=== PATIENT | male | born 1950 | race Caucasian/White ===

== ENCOUNTER 2019-01-13 20:08 | Emergency (ER) | payer OTHER ==
[2019-01-13 20:23] VITALS: TEMP 97.9
--- NOTE | 2019-01-13 20:57 | ED ---
General Adult HPI - General Chief complaint: Weakness Stated complaint: Fall Time Seen by Provider: 01/13/19 20:45 Source: patient, EMS Mode of arrival: EMS Limitations: no limitations - History of Present Illness Initial comments: Dictation was produced using [employer] dictation software. please excuse any grammatical, word or spelling errors. Chief Complaint: 68-year-old male presents via EMS from [facility] for weakness. History of Present Illness: 68-year-old male. He reports that he was sitting in a chair. The chair broke and he fell onto his right side. Patient has no complaints at this time. Patient states that he was still in the chair upon falling down. Patient states he ambulates normally with a walker. Patient needed assistance getting up due to chronic debility. The ROS documented in this emergency department record has been reviewed and confirmed by me. Those systems with pertinent positive or negative responses have been documented in the HPI. All other systems are other negative and/or noncontributory. PHYSICAL EXAM: General Impression: Alert and oriented x3, not in acute distress HEENT: Normocephalic atraumatic, extra-ocular movements intact, pupils equal and reactive to light bilaterally, mucous membranes moist. Cardiovascular: Heart regular rate and rhythm, S1&S2 audible, no murmurs, rubs or gallops Chest: Lungs clear to auscultation bilaterally, no rhonchi, no wheeze, no rales Abdomen: Bowel sounds present, abdomen soft, non-tender, non-distended, no organomegaly Musculoskeletal: Pulses present and equal in all extremities, no peripheral edema, all extremities ranged with no issues. Motor: no focal deficits noted Neurological: CN II-XII grossly intact, no focal motor or sensory deficits noted Skin: Superficial skin abrasion over the right flank Psych: Normal affect and mood ED course: 68-year-old male presents after fall from sitting on a chair that broke. As upon arrival shows heart rate of 111, respiratory rate 34, rest of vital signs within acceptable limits. Chest x-ray, pelvis x-ray and bilateral knee x-rays were obtained showing no acute processes. Patient evaluated and found to be stable. He has no complaints at this time. Patient denies any pain at this time. Patient requests to go home. At this point patient's well- appearing without any significant injuries. Patient clear for discharge back to [facility]. Repeat vitals were obtained found to be improved. Advised to follow-up with primary care physician upon discharge. - Related Data Home Medications Medication Instructions Recorded Confirmed Aspirin EC [Ecotrin Low Dose] 81 mg PO DAILY 01/13/19 01/13/19 Citalopram Hydrobromide [CeleXA] 40 mg PO DAILY 01/13/19 01/13/19 Finasteride [Proscar] 5 mg PO DAILY 01/13/19 01/13/19 Furosemide [Lasix] 40 mg PO BID@0700,1200 01/13/19 01/13/19 Metoprolol Succinate (ER) [Toprol 25 mg PO DAILY 01/13/19 01/13/19 Xl] Omeprazole 40 mg PO DAILY 01/13/19 01/13/19 Tamsulosin HCl [Flomax] 0.4 mg PO DAILY 01/13/19 01/13/19 Allergies Allergy/AdvReac Type Severity Reaction Status Date / Time No Known Allergies Allergy Verified 01/13/19 21:08 Review of Systems ROS Statement: Those systems with pertinent positive or pertinent negative responses have been documented in the HPI. ROS Other: All systems not noted in ROS Statement are negative. Past Medical History Past Medical History: GERD/Reflux, Hypertension, Prostate Disorder History of Any Multi-Drug Resistant Organisms: None Reported Past Surgical History: Tonsillectomy Past Psychological History: Depression Smoking Status: Never smoker Past Alcohol Use History: Rare Past Drug Use History: None Reported General Exam Limitations: no limitations Course Vital Signs 01/13/19 20:15 Temperature 97.9 F Pulse Rate 111 H Respiratory 34 H Rate Blood Pressure 124/90 O2 Sat by Pulse 95 Oximetry Disposition Clinical Impression: Fall Disposition: HOME SELF-CARE Condition: Good Instructions (If sedation given, give patient instructions): Fall Prevention (ED) Is patient prescribed a controlled substance at d/c from ED?: No Referrals: [facility],Clinic [Primary Care Provider] - 1-2 days Time of Disposition: 22:32
--- NOTE | 2019-01-13 22:12 | XR ---
EXAMINATION TYPE: XR chest 2V DATE OF EXAM: 01/13/2019 COMPARISON: Chest x-ray October 14, 2014 HISTORY: Fall injury with chest pain. TECHNIQUE: Frontal and lateral views of the chest are obtained. FINDINGS: Suboptimal study due to patient's large body habitus. There is poor inspiration chronic par enchymal change without suspicious focal air space opacity, pleural effusion, or pneumothorax seen. The cardiac silhouette size is enlarged. Bridging osteophytes in the thoracic spine are present. IMPRESSION: Diminished inspiration with cardiomegaly and chronic parenchymal changes but no convinci ng acute pulmonary process.
--- NOTE | 2019-01-13 22:13 | XR ---
EXAMINATION TYPE: XR pelvis AP view DATE OF EXAM: 01/13/2019 CLINICAL HISTORY: Follow injury today with pain. TECHNIQUE: A single AP view of the pelvis is obtained. COMPARISON: None. FINDINGS: There is no acute fracture/dislocation evident in the pelvis. Moderate axial joint space l oss and acetabular spurring of both hips is present. Sacroiliac joints are maintained. The overlying soft tissue appears unremarkable. IMPRESSION: There is no acute fracture or dislocation in the pelvis.
--- NOTE | 2019-01-13 22:16 | XR ---
EXAMINATION TYPE: XR knee limited bilateral DATE OF EXAM: 01/13/2019 CLINICAL HISTORY: Fall injury today with bilateral knee pain. TECHNIQUE: Three views of the bilateral knees are obtained. COMPARISON: Right knee x-ray October 14, 2014.. FINDINGS: There is no acute fracture/dislocation evident in either knee. There is moderate to severe narrowing and spurring patellofemoral and medial tibiofemoral compartments bilaterally worse in the right patellofemoral compartment. Posterior vascular calcification is present bilaterally worse in th e right knee. IMPRESSION: There is no acute fracture or dislocation in either knee. Moderate to advanced degenerat ayan changes bilaterally worse in right knee versus left knee noted.
[2019-01-13 22:50] VITALS: BP 141/90; PULSE 102; RESP 26
== END 2019-01-14 00:26 | disposition home or self-care (01) ==
LOC: EC 20:08
DX: S30.811A Abrasion of abdominal wall, initial encounter (principal); R53.1 Weakness; K21.9 Gastro-esophageal reflux disease without esophagitis; I10 Essential (primary) hypertension; N42.9 Disorder of prostate, unspecified; F32.9 Major depressive disorder, single episode, unspecified; Z79.82 Long term (current) use of aspirin; Z79.899 Other long term (current) drug therapy; W07.XXXA Fall from chair, initial encounter
CPT/HCPCS: 71046; 72170; 99285

== ENCOUNTER 2019-01-14 11:36 | Emergency (ER) | payer OTHER ==
--- NOTE | 2019-01-14 12:09 | ED ---
Fall HPI - General Stated Complaint: Fall, R hip pain Time Seen by Provider: 01/14/19 11:57 Source: patient, EMS Mode of arrival: EMS Limitations: no limitations - History of Present Illness Initial Comments: 68-year-old male presents emergency Department chief complaint of slip and fall. Patient states his walker slid out from him and states that he slipped to the ground. He states is a very gentle fall. Patient states that he has some pelvic pain. Patient denies any head injury no loss conscious. Patient has abrasion on his right side though he states this was from a fall earlier. Patient states that he does have a scrape on his right foot though it is not painful. Patient denies any upper extremity pain. - Related Data Home Medications Medication Instructions Recorded Confirmed Aspirin EC [Ecotrin Low Dose] 81 mg PO DAILY 01/13/19 01/14/19 Citalopram Hydrobromide [CeleXA] 40 mg PO DAILY 01/13/19 01/14/19 Finasteride [Proscar] 5 mg PO DAILY 01/13/19 01/14/19 Furosemide [Lasix] 40 mg PO BID@0700,1200 01/13/19 01/14/19 Metoprolol Succinate (ER) [Toprol 25 mg PO DAILY 01/13/19 01/14/19 Xl] Omeprazole 40 mg PO DAILY 01/13/19 01/14/19 Tamsulosin HCl [Flomax] 0.4 mg PO DAILY 01/13/19 01/14/19 Allergies Allergy/AdvReac Type Severity Reaction Status Date / Time No Known Allergies Allergy Verified 01/14/19 11:59 Review of Systems ROS Statement: Those systems with pertinent positive or pertinent negative responses have been documented in the HPI. ROS Other: All systems not noted in ROS Statement are negative. Past Medical History Past Medical History: GERD/Reflux, Hypertension, Prostate Disorder History of Any Multi-Drug Resistant Organisms: None Reported Past Surgical History: Tonsillectomy Past Psychological History: Depression Smoking Status: Never smoker Past Alcohol Use History: Rare Past Drug Use History: None Reported General Exam Limitations: no limitations General appearance: alert, in no apparent distress Head exam: Present: atraumatic, normocephalic, normal inspection Eye exam: Present: normal appearance, PERRL, EOMI. Absent: scleral icterus, conjunctival injection, periorbital swelling ENT exam: Present: normal exam, normal oropharynx, mucous membranes moist, TM's normal bilaterally Neck exam: Present: normal inspection, full ROM. Absent: tenderness, meningismus, lymphadenopathy Respiratory exam: Present: normal lung sounds bilaterally. Absent: respiratory distress, wheezes, rales, rhonchi, stridor Cardiovascular Exam: Present: regular rate, normal rhythm, normal heart sounds. Absent: systolic murmur, diastolic murmur, rubs, gallop, clicks GI/Abdominal exam: Present: soft, normal bowel sounds. Absent: distended, tenderness, guarding, rebound, rigid Extremities exam: Present: normal inspection, full ROM, normal capillary refill, other (Mild tenderness along the lower pelvic region). Absent: tenderness, pedal edema, joint swelling, calf tenderness Back exam: Present: full ROM. Absent: tenderness, paraspinal tenderness, vertebral tenderness Skin exam: Present: warm, dry, intact, normal color, abrasion (Abrasion noted the right side with no localized tenderness, right foot abrasion). Absent: rash Course Vital Signs 01/14/19 11:54 Temperature 99.4 F Pulse Rate 102 H Respiratory 20 Rate Blood Pressure 138/94 O2 Sat by Pulse 94 L Oximetry Medical Decision Making - Medical Decision Making 68-year-old male presented for a slip and fall. This was a minor fall. X-rays were repeated which shows no fracture. Patient is able to stand, ambulate. Patient has a contusion. He also has noted abrasion. Patient will be discharg ed return parameters were discussed. Disposition Clinical Impression: Fall, Foot abrasion, Contusion, hip Disposition: HOME SELF-CARE Condition: Stable Instructions (If sedation given, give patient instructions): Abrasion (ED), Fall Prevention for Older Adults (ED) Additional Instructions: Please return to the Emergency Department if symptoms worsen or any other concerns. Is patient prescribed a controlled substance at d/c from ED?: No Referrals: [facility],Clinic [Primary Care Provider] - 1-2 days Time of Disposition: 12:49
--- NOTE | 2019-01-14 12:31 | XR ---
AP pelvis HISTORY: Trauma and pain frontal view of the pelvis submitted on 2 images and correlated prior exam 01/13/2019 Exam is somewhat limited technically. Hypertrophic changes are noted within the bilateral hips. Joint space loss is present. No gross fract ure or dislocation. IMPRESSION: Stable findings. Consider alternate imaging for increased sensitivity as indicated.
[2019-01-14 13:43] VITALS: BP 130/93; PULSE 101; RESP 18; TEMP 98.2
== END 2019-01-14 13:40 | disposition home or self-care (01) ==
LOC: EEVIPCON 11:36 → EC 11:36
DX: S90.811A Abrasion, right foot, initial encounter (principal); S70.01XA Contusion of right hip, initial encounter; R10.2 Pelvic and perineal pain; K21.9 Gastro-esophageal reflux disease without esophagitis; I10 Essential (primary) hypertension; N42.9 Disorder of prostate, unspecified; F32.9 Major depressive disorder, single episode, unspecified; Z79.82 Long term (current) use of aspirin; Z79.899 Other long term (current) drug therapy; W01.0XXA Fall on same level from slipping, tripping and stumbling without subsequent striking against object, initial encounter; Y93.01 Activity, walking, marching and hiking
CPT/HCPCS: 72170; 99283

== ENCOUNTER 2019-01-14 17:19 | Emergency (ER) | payer OTHER ==
[2019-01-14] MEDS ORDERED: DEXAMETHASONE SOD PHOSPHATE 10 MG/ML 1 ML VIAL IV STA (19:00)
--- NOTE | 2019-01-14 19:16 | ED ---
General Adult HPI - General Chief complaint: Weakness Stated complaint: Weakness Time Seen by Provider: 01/14/19 17:45 Source: patient, EMS, RN notes reviewed, old records reviewed Mode of arrival: EMS Limitations: no limitations - History of Present Illness Initial comments: 68-year-old male patient with past medical history of BPH, hypertension, presents to ER with complaint of diarrhea, weakness in lower extremities, loss of bowel control. Patient reports that he had a fall for which she was seen at this emergency department around 12 PM. Patient reports at that time his walker slid out from from underneath him and he fell on his gluteal region. Patient reports that this was a mild not severe fall. Patient denies any trauma to head or neck, denies any other injury. Patient reports after discharge he felt weak in his lower extremities, was not comfortable with ambulation. Patient uses a walker to ambulate. Patient also reports a loss of bowel control. Patient has had diarrhea throughout the day. Patient requests further evaluation. Patient denies any paresthesias, saddle anesthesia, patient denies pain in lumbar spine. Systemic: Pt denies fatigue, myalgia, fever/chills, rash. Pt denies weakness, night sweats, weight loss. Neuro: Pt denies headache, visual disturbances, syncope or pre-syncope. HEENT: Pt denies ocular discharge or irritation, otalgia, rhinorrhea, pharyngitis or notable lymphadenopathy. Cardiopulmonary: Pt denies chest pain, SOB, heart palpitations, dyspnea on exertion. Abdominal/GI: Pt denies abdominal pain, n/v/d. : Pt denies dysuria, burning w/ urination, frequency/urgency. Denies new onset urinary or bowel incontinence. MSK: Pt denies myalgia. Neuro: Pt denies new onset paresthesias. - Related Data Home Medications Medication Instructions Recorded Confirmed Aspirin EC [Ecotrin Low Dose] 81 mg PO DAILY 01/13/19 01/14/19 Citalopram Hydrobromide [CeleXA] 40 mg PO DAILY 01/13/19 01/14/19 Finasteride [Proscar] 5 mg PO DAILY 01/13/19 01/14/19 Furosemide [Lasix] 40 mg PO BID@0700,1200 01/13/19 01/14/19 Metoprolol Succinate (ER) [Toprol 25 mg PO DAILY 01/13/19 01/14/19 Xl] Omeprazole 40 mg PO DAILY 01/13/19 01/14/19 Tamsulosin HCl [Flomax] 0.4 mg PO DAILY 01/13/19 01/14/19 Allergies Allergy/AdvReac Type Severity Reaction Status Date / Time No Known Allergies Allergy Verified 01/14/19 18:05 Review of Systems ROS Statement: Those systems with pertinent positive or pertinent negative responses have been documented in the HPI. ROS Other: All systems not noted in ROS Statement are negative. Past Medical History Past Medical History: GERD/Reflux, Hypertension, Prostate Disorder History of Any Multi-Drug Resistant Organisms: None Reported Past Surgical History: Tonsillectomy Past Psychological History: Depression Smoking Status: Never smoker Past Alcohol Use History: Rare Past Drug Use History: None Reported General Exam - General Exam Comments Initial Comments: Constitutional: NAD, AOX3, Pt has pleasant affect. HEENT: NC/AT, trachea midline, neck supple, no lymphadenopathy. Posterior pharynx non erythematous, without exudates. External ears appear normal, without discharge. Mucous membranes moist. Eyes PERRLA, EOM intact. There is no scleral icterus. No pallor noted. Cardiopulmonary: RRR, no murmurs, rubs or gallops, no JVD noted. Lungs CTAB in anterior and posterior hendricks. No peripheral edema. Abdominal exam: Abdomen soft and non-distended. Abdomen non-tender to palpation in all 4 quadrants. Bowel sounds active in LLQ. No hepatosplenomegaly. No ecchymosis Neuro: CN II-XII grossly intact. No nuchal rigidity. MSK: Full active ROM in upper and lower extremities. 5 out of 5 strength in right quadricep/psoas muscles. 3 out of 5 strength in left psoas, 4/5 strength in left quadriceps muscle. Absent patellar and Achilles reflex. Rectal tone mildly diminished. Sensation intact in upper and lower extremities, rectum. Limitations: no limitations Course Vital Signs 01/14/19 01/14/19 01/14/19 17:28 18:00 18:30 Temperature 97.1 F L Pulse Rate 97 Respiratory 18 Rate Blood Pressure 144/78 144/78 137/88 O2 Sat by Pulse 92 L 93 L Oximetry Medical Decision Making - Medical Decision Making 68-year-old male patient with past medical history of BPH, hypertension, presents to ER with complaint of diarrhea, weakness in lower extremities, loss of bowel control. Patient reports that he had a fall for which she was seen at this emergency department around 12 PM. Patient reports at that time his walker slid out from from underneath him and he fell on his gluteal region. Patient reports that this was a mild not severe fall. Patient denies any trauma to head or neck, denies any other injury. Patient reports after discharge he felt weak in his lower extremities, was not comfortable with ambulation. Patient uses a walker to ambulate. Patient also reports a loss of bowel control. Patient has had diarrhea throughout the day. Patient requests further evaluation. Patient denies any paresthesias, saddle anesthesia, patient denies pain in lumbar spine. Vital signs stable, afebrile. Physical exam displayed: Full active ROM in upper and lower extremities. 5 out of 5 strength in right quadricep/psoas muscles. 3 out of 5 strength in left psoas, 4/5 strength in left quadriceps muscle. Absent patellar and Achilles reflex. Rectal tone mildly diminished. Sensation intact in upper and lower extremities, rectum. Left MSK she reveal leukocytosis of 20. BMP non-impressive. UA non-impressive. Bladder scan displayed 200mL retention, pt not able to spontaneously void. CT thoracic and lumbar spine displayed very severe lumbar spinal stenosis at L3-L4. MRI not currently available. Patient administered 10 mg Decadron. Patient to be transferred to [facility] for further evaluation. Case discussed with Dr. Olivo. Accepting Physician Dr. Monroe. - Lab Data Result diagrams: 01/14/19 19:12 01/14/19 19:12 Lab Results 01/14/19 01/14/19 01/14/19 Range/Units 19:12 19:12 20:04 WBC 20.9 H (3.8-10.6) k/uL RBC 4.30 (4.30-5.90) m/uL Hgb 13.1 (13.0-17.5) gm/dL Hct 40.0 (39.0-53.0) % MCV 93.1 (80.0-100.0) fL MCH 30.4 (25.0-35.0) pg MCHC 32.6 (31.0-37.0) g/dL RDW 13.7 (11.5-15.5) % Plt Count 332 (150-450) k/uL Neutrophils % 84 % Lymphocytes % 6 % Monocytes % 7 % Eosinophils % 1 % Basophils % 0 % Neutrophils # 17.7 H (1.3-7.7) k/uL Lymphocytes # 1.2 (1.0-4.8) k/uL Monocytes # 1.5 H (0-1.0) k/uL Eosinophils # 0.3 (0-0.7) k/uL Basophils # 0.1 (0-0.2) k/uL Sodium 140 (137-145) mmol/L Potassium 4.4 (3.5-5.1) mmol/L Chloride 106 (98-107) mmol/L Carbon Dioxide 26 (22-30) mmol/L Anion Gap 8 mmol/L BUN 29 H (9-20) mg/dL Creatinine 1.18 (0.66-1.25) mg/dL Est GFR (CKD-EPI)AfAm 72 (>60 ml/min/1.73 sqM) Est GFR (CKD-EPI)NonAf 63 (>60 ml/min/1.73 sqM) Glucose 139 H (74-99) mg/dL Calcium 9.6 (8.4-10.2) mg/dL Urine Color Urine Appearance (Clear) Urine pH (5.0-8.0) Ur Specific [place] (1.001-1.035) Urine Protein (Negative) Urine Glucose (UA) (Negative) Urine Ketones (Negative) Urine Blood (Negative) Urine Nitrite (Negative) Urine Bilirubin (Negative) Urine Urobilinogen (<2.0) mg/dL Ur Leukocyte Esterase (Negative) Urine RBC (0-5) /hpf Urine WBC (0-5) /hpf Amorphous Sediment (None) /hpf Hyaline Casts (0-2) /lpf Urine Mucus (None) /hpf Influenza Type A RNA Not Detected (Not Detectd) Influenza Type B (PCR) Not Detected (Not Detectd) 01/14/19 Range/Units 20:54 WBC (3.8-10.6) k/uL RBC (4.30-5.90) m/uL Hgb (13.0-17.5) gm/dL Hct (39.0-53.0) % MCV (80.0-100.0) fL MCH (25.0-35.0) pg MCHC (31.0-37.0) g/dL RDW (11.5-15.5) % Plt Count (150-450) k/uL Neutrophils % % Lymphocytes % % Monocytes % % Eosinophils % % Basophils % % Neutrophils # (1.3-7.7) k/uL Lymphocytes # (1.0-4.8) k/uL Monocytes # (0-1.0) k/uL Eosinophils # (0-0.7) k/uL Basophils # (0-0.2) k/uL Sodium (137-145) mmol/L Potassium (3.5-5.1) mmol/L Chloride (98-107) mmol/L Carbon Dioxide (22-30) mmol/L Anion Gap mmol/L BUN (9-20) mg/dL Creatinine (0.66-1.25) mg/dL Est GFR (CKD-EPI)AfAm (>60 ml/min/1.73 sqM) Est GFR (CKD-EPI)NonAf (>60 ml/min/1.73 sqM) Glucose (74-99) mg/dL Calcium (8.4-10.2) mg/dL Urine Color Yellow Urine Appearance Cloudy (Clear) Urine pH 5.5 (5.0-8.0) Ur Specific [place] 1.027 (1.001-1.035) Urine Protein 1+ H (Negative) Urine Glucose (UA) Negative (Negative) Urine Ketones Negative (Negative) Urine Blood Moderate H (Negative) Urine Nitrite Negative (Negative) Urine Bilirubin Negative (Negative) Urine Urobilinogen 2.0 (<2.0) mg/dL Ur Leukocyte Esterase Negative (Negative) Urine RBC 2 (0-5) /hpf Urine WBC 4 (0-5) /hpf Amorphous Sediment Occasional H (None) /hpf Hyaline Casts 2 (0-2) /lpf Urine Mucus Few H (None) /hpf Influenza Type A RNA (Not Detectd) Influenza Type B (PCR) (Not Detectd) Disposition Clinical Impression: Fall, Lumbar spinal stenosis Disposition: OTHER INSTITUTION NOT DEFINED Condition: Serious Is patient prescribed a controlled substance at d/c from ED?: No Referrals: [facility],Clinic [Primary Care Provider] - 1-2 days - Out of Hospital Transfer - Req. Specs Out of Hospital Transfer - Requested Specifics: Other Emergency Center ([facility])
[2019-01-14 19:22] LABS: Basophils # (A) 0.1 k/uL (0-0.2); Basophils % (A) 0 %; Eosinophils # (A) 0.3 k/uL (0-0.7); Eosinophils % (A) 1 %; HGB 13.1 gm/dL (13.0-17.5); Lymphocytes # (A) 1.2 k/uL (1.0-4.8); Lymphocytes % (A) 6 %; MCH 30.4 pg (25.0-35.0); MCHC 32.6 g/dL (31.0-37.0); MCV 93.1 fL (80.0-100.0); Mean Platelet Volume 6.8; Monocytes # (A) 1.5 k/uL (0-1.0); Monocytes % (A) 7 %; Neutrophils # (A) 17.7 k/uL (1.3-7.7); Neutrophils % (A) 84 %; Platelet Count 332 k/uL (150-450); RDW 13.7 % (11.5-15.5); WBC 20.9 k/uL (3.8-10.6)
[2019-01-14 19:31] LABS: Calcium 9.6 mg/dL (8.4-10.2); Potassium 4.4 mmol/L (3.5-5.1)
--- NOTE | 2019-01-14 20:16 | CT ---
EXAMINATION TYPE: CT thor lumbar spine wo con DATE OF EXAM: 01/14/2019 COMPARISON: None HISTORY: Weakness. CT DLP: 3882.4 mGycm Automated exposure control for dose reduction was used. FINDINGS: Thoracic and lumbar vertebra have fairly normal spacing and alignment for the patient's age. There is mild hypertrophic anterior spurring in the thoracic spine and lumbar spine. The posterior elements a re intact. There is no compression fracture. There is no thoracic paraspinal mass. There is coarse re ticular density in the posterior lung hendricks and more on the right side consistent with pulmonary fib rosis. There is no pleural effusion. There is no thoracic paraspinal mass. There is a mild spinal amie nosis at L2-3. There is severe bony spinal stenosis at L3-4. There is mild spinal stenosis at L4-5. IMPRESSION: VERY SEVERE LUMBAR SPINAL STENOSIS AT L3-4. NO FRACTURE. THERE IS LESS SEVERE SPINAL STENOSIS AT OTHE R LEVELS ABOVE. PULMONARY FIBROTIC CHANGES AT THE LUNG BASES.
[2019-01-14 21:13] LABS: Amorphous Sediment,Urine Occasional /hpf; Appearance,Urine Cloudy (Clear); Bilirubin,Urine Negative (Negative); Blood,Urine Moderate (Negative); Color,Urine Yellow; Glucose,Urine (UA) Negative (Negative); Hyaline Casts,Urine 2 /lpf (0-2); Ketones,Urine Negative (Negative); Leukocyte Esterase,Urine Negative (Negative); Mucus,Urine Few /hpf; Nitrite,Urine Negative (Negative); PH, Urine 5.5 (5.0-8.0); Protein,Urine 1+ (Negative); RBC,Urine 2 /hpf (0-5); Specific Gravity,Urine 1.027 (1.001-1.035)
[2019-01-14 22:03] VITALS: BP 133/85; PULSE 82; RESP 22; TEMP 98.8
== END 2019-01-14 22:03 | disposition other institution (70) ==
LOC: EC 17:19
DX: M48.061 Spinal stenosis, lumbar region without neurogenic claudication (principal); R53.1 Weakness; R19.7 Diarrhea, unspecified; R33.9 Retention of urine, unspecified; D72.829 Elevated white blood cell count, unspecified; I10 Essential (primary) hypertension; N40.0 Benign prostatic hyperplasia without lower urinary tract symptoms; K21.9 Gastro-esophageal reflux disease without esophagitis; F32.9 Major depressive disorder, single episode, unspecified; Z79.82 Long term (current) use of aspirin; Z79.899 Other long term (current) drug therapy; W18.39XD Other fall on same level, subsequent encounter; Y92.098 Other place in other non-institutional residence as the place of occurrence of the external cause
CPT/HCPCS: 36415; 51701; 72128; 72131; 80048; 81001; 85025; 87502; 96374; 99285

== ENCOUNTER 2019-02-12 14:57 | Emergency (ER) | payer OTHER ==
[2019-02-12 15:16] VITALS: TEMP 98.2
--- NOTE | 2019-02-12 16:12 | ED ---
Wound/Laceration HPI - General Chief Complaint: Wound/Laceration Stated Complaint: infection Time Seen by Provider: 02/12/19 15:23 Source: patient, EMS, RN notes reviewed, old records reviewed Mode of arrival: EMS Limitations: physical limitation - History of Present Illness Initial Comments: This is a 68-year-old male presenting for evaluation of chronic right-sided will only gallop following hitting it on a desk. Slow healing wound. No drainage. The wound did bleed, but is is not healing appropriately. A she does have significant medical history, and denies underlying diagnosis of diabetes no fevers. Patient does admit to some mild tenderness in the area. Patient was sent ER for evaluation of wound. -: week(s) Extremity Location: Right: Knee Place: home Patient Tetanus UTD: No Context: fall Associated Symptoms: none - Related Data Home Medications Medication Instructions Recorded Confirmed Aspirin EC [Ecotrin Low Dose] 81 mg PO DAILY 01/13/19 02/12/19 Citalopram Hydrobromide [CeleXA] 40 mg PO DAILY 01/13/19 02/12/19 Finasteride [Proscar] 5 mg PO DAILY 01/13/19 02/12/19 Furosemide [Lasix] 40 mg PO BID@0700,1200 01/13/19 02/12/19 Metoprolol Succinate (ER) [Toprol 25 mg PO DAILY 01/13/19 02/12/19 Xl] Omeprazole 40 mg PO DAILY 01/13/19 02/12/19 Tamsulosin HCl [Flomax] 0.4 mg PO DAILY 01/13/19 02/12/19 Previous Rx's Medication Instructions Recorded Cephalexin [Keflex] 500 mg PO Q6HR #40 cap 02/12/19 Mupirocin Calcium 2% Cream 1 applic TOPICAL TID #15 gm 02/12/19 [Bactroban 2% Cream] Allergies Allergy/AdvReac Type Severity Reaction Status Date / Time No Known Allergies Allergy Verified 02/12/19 16:00 Review of Systems ROS Statement: Those systems with pertinent positive or pertinent negative responses have been documented in the HPI. ROS Other: All systems not noted in ROS Statement are negative. Past Medical History Past Medical History: COPD, GERD/Reflux, Hypertension, Prostate Disorder History of Any Multi-Drug Resistant Organisms: None Reported Past Surgical History: Tonsillectomy Past Psychological History: Anxiety, Depression Smoking Status: Never smoker Past Alcohol Use History: Rare Past Drug Use History: None Reported General Exam Limitations: physical limitation General appearance: alert, in no apparent distress Head exam: Present: atraumatic, normocephalic, normal inspection Eye exam: Present: normal appearance, PERRL, EOMI. Absent: scleral icterus, conjunctival injection, periorbital swelling ENT exam: Present: normal exam, mucous membranes moist Neck exam: Present: normal inspection. Absent: tenderness, meningismus, lymphadenopathy Respiratory exam: Present: normal lung sounds bilaterally. Absent: respiratory distress, wheezes, rales, rhonchi, stridor Cardiovascular Exam: Present: regular rate, normal rhythm, normal heart sounds. Absent: systolic murmur, diastolic murmur, rubs, gallop, clicks GI/Abdominal exam: Present: soft, normal bowel sounds. Absent: distended, tenderness, guarding, rebound, rigid Extremities exam: Present: normal inspection, full ROM, normal capillary refill. Absent: tenderness, pedal edema, joint swelling, calf tenderness Back exam: Present: normal inspection Neurological exam: Present: alert, oriented X3, CN II-XII intact Psychiatric exam: Present: normal affect, normal mood Skin exam: Present: warm, dry, intact, normal color. Absent: rash Course Vital Signs 02/12/19 02/12/19 15:10 16:37 Temperature 98.2 F Pulse Rate 60 67 Respiratory 18 16 Rate Blood Pressure 108/81 129/74 O2 Sat by Pulse 97 98 Oximetry - Reevaluation(s) Reevaluation #1: 02/12/19 16:25 Medical record reviewed Patient is in no acute distress, no pain. Medical Decision Making - Medical Decision Making 68 male the ER with abrasion to right side of abdomen. No drainage, mild surrounding cellulitis. Patient placed on antibiotics and discharged Disposition Clinical Impression: Abdominal wall abrasion, Cellulitis Disposition: HOME SELF-CARE Condition: Good Instructions (If sedation given, give patient instructions): Cellulitis (ED), Abrasion (ED) Prescriptions: Mupirocin Calcium 2% Cream [Bactroban 2% Cream] 1 applic TOPICAL TID #15 gm Cephalexin [Keflex] 500 mg PO Q6HR #40 cap Is patient prescribed a controlled substance at d/c from ED?: No Referrals: [facility] [Primary Care Provider] - 1-2 days
[2019-02-12 16:38] VITALS: BP 129/74; PULSE 67; RESP 16
== END 2019-02-12 17:21 | disposition home or self-care (01) ==
LOC: EC 14:57
DX: S30.811A Abrasion of abdominal wall, initial encounter (principal); L03.311 Cellulitis of abdominal wall; K21.9 Gastro-esophageal reflux disease without esophagitis; I10 Essential (primary) hypertension; N42.9 Disorder of prostate, unspecified; F32.9 Major depressive disorder, single episode, unspecified; F41.9 Anxiety disorder, unspecified; Z79.899 Other long term (current) drug therapy; Z79.82 Long term (current) use of aspirin; W19.XXXA Unspecified fall, initial encounter
CPT/HCPCS: 99284

== ENCOUNTER 2019-04-18 14:23 | Inpatient (IN) | payer OTHER, MEDICARE ==
[2019-04-18] MEDS ORDERED: VANCOMYCIN IV PER PHARMACY 1 EACH MISC MISCELLANE PRN (14:49)
[2019-04-18] MEDS ORDERED: SODIUM CHLORIDE 0.9% 1,000 ML IV STA (14:49)
--- NOTE | 2019-04-18 14:50 | ED ---
Extremity Problem HPI - General Chief complaint: Extremity Problem,Nontraumatic Stated complaint: Leg Wounds Time Seen by Provider: 04/18/19 14:48 Source: EMS, RN notes reviewed, old records reviewed Mode of arrival: EMS Limitations: no limitations - History of Present Illness Initial comments: This is a 66-year-old male the ER for evaluation presents today for evaluation of bilateral lower extremity cellulitis and swelling. Erythema drainage open ul cers. Patient is history of diabetes and PD PAD, patient's been on Keflex as an outpatient which he finished treatment for yesterday symptoms are not better that are significantly worse. Patient denies fever. Swelling is circumferential insignificant, increasing from prior MD Complaint: extremity pain, extremity swelling -: week(s) Location: left, right, lower extremity, bilateral lower extremity History of Same: Yes Radiation: proximal Severity scale (1-10): 5 Quality: burning, aching Consistency: constant Improves with: nothing Worsens with: nothing Associated Symptoms: denies other symptoms - Related Data Home Medications Medication Instructions Recorded Confirmed Aspirin EC [Ecotrin Low Dose] 81 mg PO DAILY 01/13/19 02/12/19 Citalopram Hydrobromide [CeleXA] 40 mg PO DAILY 01/13/19 02/12/19 Finasteride [Proscar] 5 mg PO DAILY 01/13/19 02/12/19 Furosemide [Lasix] 40 mg PO BID@0700,1200 01/13/19 02/12/19 Metoprolol Succinate (ER) [Toprol 25 mg PO DAILY 01/13/19 02/12/19 Xl] Omeprazole 40 mg PO DAILY 01/13/19 02/12/19 Tamsulosin HCl [Flomax] 0.4 mg PO DAILY 01/13/19 02/12/19 Previous Rx's Medication Instructions Recorded Cephalexin [Keflex] 500 mg PO Q6HR #40 cap 02/12/19 Mupirocin Calcium 2% Cream 1 applic TOPICAL TID #15 gm 02/12/19 [Bactroban 2% Cream] Allergies Allergy/AdvReac Type Severity Reaction Status Date / Time No Known Allergies Allergy Verified 04/18/19 14:29 Review of Systems ROS Statement: Those systems with pertinent positive or pertinent negative responses have been documented in the HPI. ROS Other: All systems not noted in ROS Statement are negative. Past Medical History Past Medical History: COPD, GERD/Reflux, Hypertension, Prostate Disorder History of Any Multi-Drug Resistant Organisms: None Reported Past Surgical History: Tonsillectomy Past Psychological History: Anxiety, Depression Smoking Status: Never smoker Past Alcohol Use History: Rare Past Drug Use History: None Reported General Exam - General Exam Comments Initial Comments: Bilateral shoulder right lower extremity significant erythema, edema and drain age Limitations: no limitations General appearance: alert, in no apparent distress Head exam: Present: atraumatic, normocephalic, normal inspection Eye exam: Present: normal appearance, PERRL, EOMI. Absent: scleral icterus, conjunctival injection, periorbital swelling ENT exam: Present: normal exam, mucous membranes moist Neck exam: Present: normal inspection. Absent: tenderness, meningismus, lymphadenopathy Respiratory exam: Present: normal lung sounds bilaterally. Absent: respiratory distress, wheezes, rales, rhonchi, stridor Cardiovascular Exam: Present: regular rate, normal rhythm, normal heart sounds. Absent: systolic murmur, diastolic murmur, rubs, gallop, clicks GI/Abdominal exam: Present: soft, normal bowel sounds. Absent: distended, tenderness, guarding, rebound, rigid Extremities exam: Present: normal inspection, full ROM, normal capillary refill. Absent: tenderness, pedal edema, joint swelling, calf tenderness Back exam: Present: normal inspection Neurological exam: Present: alert, oriented X3, CN II-XII intact Psychiatric exam: Present: normal affect, normal mood Skin exam: Present: warm, dry, intact, normal color. Absent: rash Course Vital Signs 04/18/19 14:25 Temperature 97.6 F Pulse Rate 69 Respiratory 18 Rate Blood Pressure 134/82 O2 Sat by Pulse 98 Oximetry - Reevaluation(s) Reevaluation #1: 04/18/19 16:28 Medical records reviewed Medical Decision Making - Medical Decision Making 68 male the ER for evaluation of bilateral lower extremity cellulitis erythema and edema. Patient felt outpatient treatment as he finished antibiotics yesterday. We'll admit for IV antibiotics and wound care - Lab Data Result diagrams: 04/18/19 15:33 04/18/19 15:33 Lab Results 04/18/19 04/18/19 04/18/19 Range/Units 15:33 15:33 15:33 WBC 11.8 H (3.8-10.6) k/uL RBC 4.25 L (4.30-5.90) m/uL Hgb 12.8 L (13.0-17.5) gm/dL Hct 38.8 L (39.0-53.0) % MCV 91.3 (80.0-100.0) fL MCH 30.1 (25.0-35.0) pg MCHC 33.0 (31.0-37.0) g/dL RDW 13.0 (11.5-15.5) % Plt Count 338 (150-450) k/uL Neutrophils % 75 % Lymphocytes % 11 % Monocytes % 8 % Eosinophils % 3 % Basophils % 1 % Neutrophils # 8.9 H (1.3-7.7) k/uL Lymphocytes # 1.3 (1.0-4.8) k/uL Monocytes # 0.9 (0-1.0) k/uL Eosinophils # 0.3 (0-0.7) k/uL Basophils # 0.1 (0-0.2) k/uL PT (9.0-12.0) sec INR (<1.2) APTT (22.0-30.0) sec Sodium 136 L (137-145) mmol/L Potassium 3.9 (3.5-5.1) mmol/L Chloride 98 (98-107) mmol/L Carbon Dioxide 27 (22-30) mmol/L Anion Gap 11 mmol/L BUN 23 H (9-20) mg/dL Creatinine 1.33 H (0.66-1.25) mg/dL Est GFR (CKD-EPI)AfAm 63 (>60 ml/min/1.73 sqM) Est GFR (CKD-EPI)NonAf 55 (>60 ml/min/1.73 sqM) Glucose 110 H (74-99) mg/dL Plasma Lactic Acid Nolan 1.9 (0.7-2.0) mmol/L Calcium 8.9 (8.4-10.2) mg/dL Phosphorus 3.9 (2.5-4.5) mg/dL Magnesium 2.1 (1.6-2.3) mg/dL Total Bilirubin 0.6 (0.2-1.3) mg/dL AST 26 (17-59) U/L ALT 16 L (21-72) U/L Alkaline Phosphatase 113 (38-126) U/L Troponin I (0.000-0.034) ng/mL Total Protein 7.0 (6.3-8.2) g/dL Albumin 4.0 (3.5-5.0) g/dL 04/18/19 04/18/19 Range/Units 15:33 15:33 WBC (3.8-10.6) k/uL RBC (4.30-5.90) m/uL Hgb (13.0-17.5) gm/dL Hct (39.0-53.0) % MCV (80.0-100.0) fL MCH (25.0-35.0) pg MCHC (31.0-37.0) g/dL RDW (11.5-15.5) % Plt Count (150-450) k/uL Neutrophils % % Lymphocytes % % Monocytes % % Eosinophils % % Basophils % % Neutrophils # (1.3-7.7) k/uL Lymphocytes # (1.0-4.8) k/uL Monocytes # (0-1.0) k/uL Eosinophils # (0-0.7) k/uL Basophils # (0-0.2) k/uL PT 10.2 (9.0-12.0) sec INR 0.9 (<1.2) APTT 22.8 (22.0-30.0) sec Sodium (137-145) mmol/L Potassium (3.5-5.1) mmol/L Chloride (98-107) mmol/L Carbon Dioxide (22-30) mmol/L Anion Gap mmol/L BUN (9-20) mg/dL Creatinine (0.66-1.25) mg/dL Est GFR (CKD-EPI)AfAm (>60 ml/min/1.73 sqM) Est GFR (CKD-EPI)NonAf (>60 ml/min/1.73 sqM) Glucose (74-99) mg/dL Plasma Lactic Acid Nolan (0.7-2.0) mmol/L Calcium (8.4-10.2) mg/dL Phosphorus (2.5-4.5) mg/dL Magnesium (1.6-2.3) mg/dL Total Bilirubin (0.2-1.3) mg/dL AST (17-59) U/L ALT (21-72) U/L Alkaline Phosphatase (38-126) U/L Troponin I <0.012 (0.000-0.034) ng/mL Total Protein (6.3-8.2) g/dL Albumin (3.5-5.0) g/dL Disposition Clinical Impression: Bilateral lower leg cellulitis, Failure of outpatient treatment Disposition: ADMITTED IP TO THIS [facility] Condition: Good Is patient prescribed a controlled substance at d/c from ED?: No Referrals: [facility] [Primary Care Provider] - 1-2 days
[2019-04-18] MEDS ORDERED: VANCOMYCIN 2,500 MG in SODIUM CHLORIDE 0.9% 500 ML 500 ML IVPB STA (14:56)
[2019-04-18 15:50] LABS: Basophils # (A) 0.1 k/uL (0-0.2); Basophils % (A) 1 %; Eosinophils # (A) 0.3 k/uL (0-0.7); Eosinophils % (A) 3 %; HCT 38.8 % (39.0-53.0); HGB 12.8 gm/dL (13.0-17.5); Lymphocytes # (A) 1.3 k/uL (1.0-4.8); Lymphocytes % (A) 11 %; MCH 30.1 pg (25.0-35.0); MCV 91.3 fL (80.0-100.0); Mean Platelet Volume 6.8; Monocytes # (A) 0.9 k/uL (0-1.0); Monocytes % (A) 8 %; Neutrophils # (A) 8.9 k/uL (1.3-7.7); Neutrophils % (A) 75 %; Platelet Count 338 k/uL (150-450); RBC 4.25 m/uL (4.30-5.90); WBC 11.8 k/uL (3.8-10.6)
[2019-04-18 15:52] LABS: Calcium 8.9 mg/dL (8.4-10.2); Magnesium 2.1 mg/dL (1.6-2.3); Phosphorus 3.9 mg/dL (2.5-4.5); Potassium 3.9 mmol/L (3.5-5.1); Total Bilirubin 0.6 mg/dL (0.2-1.3)
[2019-04-18 15:56] LABS: INR 0.9 (<1.2); Partial Thromboplastin Time 22.8 sec (22.0-30.0); Prothrombin Time 10.2 sec (9.0-12.0)
[2019-04-18] MEDS: traMADol 50 MG TAB PO PRN (20:38)
[2019-04-18] MEDS: HYDROcodone/APAP 5-325MG 1 EACH TAB PO PRN (22:47)
[2019-04-19] MEDS: traMADol 50 MG TAB PO PRN (05:10)
[2019-04-19] MEDS: CITALOPRAM HYDROBROMIDE 20 MG TAB PO SCH (07:51)
[2019-04-19] MEDS: ASPIRIN 81 MG PO SCH (07:51)
[2019-04-19] MEDS: PANTOPRAZOLE 40 MG TABLET PO SCH (07:51)
[2019-04-19] MEDS: TAMSULOSIN 0.4 MG CAP.ER.24H PO SCH (07:51)
[2019-04-19] MEDS: FINASTERIDE 5 MG TAB PO SCH (07:51)
[2019-04-19] MEDS: METOPROLOL SUCCINATE (ER) 25 MG TAB.ER.24H PO SCH (07:52)
[2019-04-19] MEDS: ENOXAPARIN 40 MG/0.4 ML SYRINGE SQ SCH (07:52)
[2019-04-19] MEDS: VANCOMYCIN 2,500 MG in SODIUM CHLORIDE 0.9% 500 ML 500 ML IVPB SCH (09:36)
[2019-04-19] MEDS: HYDROcodone/APAP 5-325MG 1 EACH TAB PO PRN ×2 (09:38→19:43)
[2019-04-19] MEDS: TIMOLOL 0.5% OPHTH DROPS 5 ML BTL BOTH EYES SCH (09:41)
--- NOTE | 2019-04-19 12:17 | P.HPIM ---
History of Present Illness Chief Complaint: Cellulitis failing outpatient treatment This is a 68-year-old gentleman who comes to the ER for above-mentioned compress. The patient says that he's been having pain and redness and tenderness in the bilateral lower extremities past 3 weeks. He was put on outpatient Keflex by his PCP with symptoms are not improving or in fact worsening he does came into the ER for further evaluation and management. Patient says that he also has swelling in the bilateral lower extremity and the ulcers in his lower extremities were weeping. Patient otherwise does not complain of any fever or chills, no chest pain racing heart, no cough no shortness breath, no abdominal pain, nausea and vomiting, no diarrhea constipation, no tingling numbness of any of the extremities, no itch no rash. ER course-patient's vitals were stable. WBC 11.8 hemoglobin 12.8 platelets 178 sodium 136 potassium 3.9 bun 23 creatinine 1.33 GFR 55. EKG shows normal sinus rhythm. Patient was started on vancomycin and admitted to the hospitalist service a further evaluation and management. Review of Systems All systems: negative Past Medical History Past Medical History: COPD, GERD/Reflux, Hypertension, Prostate Disorder History of Any Multi-Drug Resistant Organisms: None Reported Past Surgical History: Tonsillectomy Past Psychological History: Anxiety, Depression Smoking Status: Never smoker Past Alcohol Use History: Rare Past Drug Use History: None Reported - Past Family History Father Family Medical History: No Reported History Medications and Allergies Home Medications Medication Instructions Recorded Confirmed Type Aspirin EC [Ecotrin Low Dose] 81 mg PO DAILY 01/13/19 04/18/19 History Citalopram Hydrobromide [CeleXA] 40 mg PO DAILY 01/13/19 04/18/19 History Finasteride [Proscar] 5 mg PO DAILY 01/13/19 04/18/19 History Furosemide [Lasix] 40 mg PO BID@0700,1200 01/13/19 04/18/19 History Metoprolol Succinate (ER) [Toprol 25 mg PO DAILY 01/13/19 04/18/19 History Xl] Omeprazole 40 mg PO DAILY 01/13/19 04/18/19 History Tamsulosin HCl [Flomax] 0.4 mg PO DAILY 01/13/19 04/18/19 History Timolol [Betimol 0.5% Ophth Soln] 1 drop BOTH EYES DAILY 04/18/19 04/18/19 History Allergies Allergy/AdvReac Type Severity Reaction Status Date / Time No Known Allergies Allergy Verified 04/18/19 16:47 Physical Exam Vitals: Vital Signs Temp Pulse Pulse Resp BP BP Pulse Ox 04/19/19 08:00 18 04/19/19 07:07 97.8 F 92 20 114/75 97 04/19/19 02:19 98.7 F 85 17 111/69 94 L 04/18/19 19:42 98.8 F 80 17 155/94 100 04/18/19 18:40 98.0 F 87 18 132/87 99 04/18/19 14:25 97.6 F 69 18 134/82 98 Intake and Output 04/18/19 04/19/19 04/19/19 22:59 06:59 14:59 Other: Voiding Method Toilet Urinal # Voids 0 0 On exam, alert and oriented x3. HEENT: Conjunctivae normal. eyes normal. NECK: No JVD. No thyroid enlargement. No LNs CARDIOVASCULAR: S1-S2 positive RESPIRATION: Breath sounds diminished in the bases. No rhonchi or crackles. No bronchial breathing. ABDOMEN: Soft, nontender . No guarding. no masses palpable. No ascites, No hepatosplenomegaly.Bowel sounds heard. LEGS: Patient is having a red tender bilateral lower extremities. He is having some open wounds condition of bilateral lower extremity is. NERVOUS SYSTEM: Cranial N 2-12 grossly normal. Moves all 4 limbs. No focal deficits. No sensory deficit. No signs of cerebellar dysfucntion. Skin: no ulcer no rash Results CBC & Chem 7: 04/18/19 15:33 04/18/19 15:33 Labs: Abnormal Lab Results - Last 24 Hours (Table) 04/18/19 04/18/19 Range/Units 15:33 15:33 WBC 11.8 H (3.8-10.6) k/uL RBC 4.25 L (4.30-5.90) m/uL Hgb 12.8 L (13.0-17.5) gm/dL Hct 38.8 L (39.0-53.0) % Neutrophils # 8.9 H (1.3-7.7) k/uL Sodium 136 L (137-145) mmol/L BUN 23 H (9-20) mg/dL Creatinine 1.33 H (0.66-1.25) mg/dL Glucose 110 H (74-99) mg/dL ALT 16 L (21-72) U/L Microbiology - Last 24 Hours (Table) 04/18/19 20:30 Gram Stain - Preliminary Leg - Left Wound Culture - Preliminary 04/18/19 20:30 Gram Stain - Preliminary Leg - Right Wound Culture - Preliminary 04/18/19 20:30 Anaerobic Culture - Preliminary Leg - Right 04/18/19 20:30 Anaerobic Culture - Preliminary Leg - Left Thrombosis Risk Factor Assmnt - Choose All That Apply Any of the Below Risk Factors Present?: Yes Each Factor Represents 1 point: Obesity (BMI >25) Other Risk Factors: Yes Each Risk Factor Represents 2 Points: Age 61-74 years Other congenital or acquired thrombophilia - If yes, enter type in comment: No Thrombosis Risk Factor Assessment Total Risk Factor Score: 3 Thrombosis Risk Factor Assessment Level: Moderate Risk Assessment and Plan Assessment: - Bilateral lower extremity cellulitis - Hypertension - COPD - GERD - Obesity Plan - We'll admit the patient to [facility] with telemetry - We'll continue patient on vancomycin from 0 does - We'll consult infectious disease for the expert recommendations - We'll continue medications - We'll continue Narco 5 mg every 4 hours when necessary for pain - DVT and GI prophylaxis - we'll order for lab work in the morning - Expected length of stay: 2 midnights - Patient wants to full code
--- NOTE | 2019-04-19 23:18 | P.CONS ---
History of Present Illness - Reason for Consult Consult date: 04/19/19 Bilateral extremity wound and cellulitis Requesting physician: Remigio Buchanan - Chief Complaint Swelling redness and wound to the legs x weeks - History of Present Illness Patient is 68-year-old male presenting to the ER at [facility] on 04/18/2019 with a chief complaints of lower extremity swelling redness and wound many been going on for about 2 weeks now, patient did have more swelling in his legs and did develop some blisters had ruptured leading to these superficial wounds vision has been taking outpatient setting by his primary care physician oral Keflex patient with some improvement but not completely resolution and other has slight worsening last day or 2 that prompted him to come to the ER patient is complaining of some dull aching pain to the leg and intensity is about 5-6 out of 10 and no radiation the patient did have mild serous status drainage with diffuse swelling and redness did have some chills but denies high-grade fever patient has been diagnosis lower extremity cephalitis wound culture has been obtained patient was started on vancomycin pharmacy to dose and possibly infectious disease was consulted for further recommendation regarding antibiotic therapy Review of Systems CONSTITUTIONAL: Positive for weakness. Low-grade Fever EYES: No complaint. ENT:No complaint. RESPIRATORY: Shortness of breath. CARDIOVASCULAR: No chest pain. GENITOURINARY: No complaint. GASTROINTESTINAL: No complaint. MUSCULOSKELETAL: No complaint. INTEGUMENTARY: As per history of present illness PSYCHOLOGICAL: No complaint. ENDOCRINE: No complaint. NEUROLOGIC: No complaint. Past Medical History Past Medical History: COPD, GERD/Reflux, Hypertension, Prostate Disorder History of Any Multi-Drug Resistant Organisms: None Reported Past Surgical History: Tonsillectomy Past Psychological History: Anxiety, Depression Smoking Status: Never smoker Past Alcohol Use History: Rare Past Drug Use History: None Reported - Past Family History Father Family Medical History: No Reported History Medications and Allergies Home Medications Medication Instructions Recorded Confirmed Type Aspirin EC [Ecotrin Low Dose] 81 mg PO DAILY 01/13/19 04/18/19 History Citalopram Hydrobromide [CeleXA] 40 mg PO DAILY 01/13/19 04/18/19 History Finasteride [Proscar] 5 mg PO DAILY 01/13/19 04/18/19 History Furosemide [Lasix] 40 mg PO BID@0700,1200 01/13/19 04/18/19 History Metoprolol Succinate (ER) [Toprol 25 mg PO DAILY 01/13/19 04/18/19 History Xl] Omeprazole 40 mg PO DAILY 01/13/19 04/18/19 History Tamsulosin HCl [Flomax] 0.4 mg PO DAILY 01/13/19 04/18/19 History Timolol [Betimol 0.5% Ophth Soln] 1 drop BOTH EYES DAILY 04/18/19 04/18/19 History Allergies Allergy/AdvReac Type Severity Reaction Status Date / Time No Known Allergies Allergy Verified 04/18/19 16:47 Physical Exam Vitals: Vital Signs Temp Pulse Pulse Resp BP BP Pulse Ox 04/19/19 08:00 18 04/19/19 07:07 97.8 F 92 20 114/75 97 04/19/19 02:19 98.7 F 85 17 111/69 94 L 04/18/19 19:42 98.8 F 80 17 155/94 100 04/18/19 18:40 98.0 F 87 18 132/87 99 04/18/19 14:25 97.6 F 69 18 134/82 98 Intake and Output 04/18/19 04/19/19 04/19/19 22:59 06:59 14:59 Other: Voiding Method Toilet Urinal # Voids 0 0 GENERAL DESCRIPTION: An elderly male lying in bed, no distress. No tachypnea or accessory muscle of respiration use. HEENT: Shows Pallor , no scleral icterus. Oral mucous membrane is dry. No pharyngeal erythema or thrush NECK: Trachea central, no thyromegaly. LUNGS: Unlabored breathing. Clear to auscultation anteriorly. No wheeze or crackle. HEART: S1, S2, regular rate and rhythm. No loud murmur ABDOMEN: Soft, no tenderness , guarding or rigidity, no organomegaly EXTREMITIES: Bilateral leg with diffuse swelling redness superficial wound with no slough tissue minimal clear drainage. SKIN: No rash, no masses palpable. NEUROLOGICAL: The patient is awake, alert, oriented x3, mood and affect normal Results CBC & Chem 7: 04/18/19 15:33 04/18/19 15:33 Labs: Abnormal Lab Results - Last 24 Hours (Table) 04/18/19 04/18/19 Range/Units 15:33 15:33 WBC 11.8 H (3.8-10.6) k/uL RBC 4.25 L (4.30-5.90) m/uL Hgb 12.8 L (13.0-17.5) gm/dL Hct 38.8 L (39.0-53.0) % Neutrophils # 8.9 H (1.3-7.7) k/uL Sodium 136 L (137-145) mmol/L BUN 23 H (9-20) mg/dL Creatinine 1.33 H (0.66-1.25) mg/dL Glucose 110 H (74-99) mg/dL ALT 16 L (21-72) U/L Microbiology - Last 24 Hours (Table) 04/18/19 20:30 Gram Stain - Preliminary Leg - Left Wound Culture - Preliminary 04/18/19 20:30 Gram Stain - Preliminary Leg - Right Wound Culture - Preliminary 04/18/19 20:30 Anaerobic Culture - Preliminary Leg - Right 04/18/19 20:30 Anaerobic Culture - Preliminary Leg - Left Assessment and Plan Assessment: 1-patient with bilateral lower extremity venous stasis ulcer with secondary cellulitis that has not responded well to the oral Keflex therapy with a question of possible resistant gram-positive or gram-negative infection 2-patient with mildly elevated kidney function and concern for nephrotoxicity associated with the vancomycin (1) Bilateral lower leg cellulitis Current Visit: Yes Status: Acute Code(s): L03.116 - CELLULITIS OF LEFT LOWER LIMB; L03.115 - CELLULITIS OF RIGHT LOWER LIMB SNOMED Code(s): 845491923 Plan: 1-local wound care to bilateral legs wound with Aquacel silver dressing followed by Kerlix and an Jason wrap from just above the toe to below the knee 2-vancomycin pharmacy to dose target trough of 15 watching his kidney function closely 3-discontinue Rocephin and start the patient cefepime 2 g every 12 hours to cover for the gram-negative we will follow up on clinical condition and cultures to further adjust medication if needed Thank you for this consultation will follow this patient along with you Time with Patient: Greater than 30
[2019-04-20 06:53] LABS: HCT 33.8 % (39.0-53.0); HGB 11.2 gm/dL (13.0-17.5); MCH 30.1 pg (25.0-35.0); Mean Platelet Volume 7.1; Platelet Count 302 k/uL (150-450); RBC 3.71 m/uL (4.30-5.90); RDW 13.1 % (11.5-15.5); WBC 11.8 k/uL (3.8-10.6)
[2019-04-20 07:13] LABS: African American GFR (CKD) >90 (>60 ml/min/1.73 sqM); Anion Gap 7 mmol/L; Blood Urea Nitrogen 15 mg/dL (9-20); Calcium 8.6 mg/dL (8.4-10.2); Carbon Dioxide 28 mmol/L (22-30); Chloride 101 mmol/L (98-107); Glucose 115 mg/dL (74-99); Potassium 3.5 mmol/L (3.5-5.1); Sodium 136 mmol/L (137-145)
[2019-04-20] MEDS: ENOXAPARIN 40 MG/0.4 ML SYRINGE SQ SCH (08:34)
[2019-04-20] MEDS: CITALOPRAM HYDROBROMIDE 20 MG TAB PO SCH (08:34)
[2019-04-20] MEDS: TAMSULOSIN 0.4 MG CAP.ER.24H PO SCH (08:34)
[2019-04-20] MEDS: ASPIRIN 81 MG PO SCH (08:34)
[2019-04-20] MEDS: PANTOPRAZOLE 40 MG TABLET PO SCH (08:34)
[2019-04-20] MEDS: METOPROLOL SUCCINATE (ER) 25 MG TAB.ER.24H PO SCH (08:34)
[2019-04-20] MEDS: FINASTERIDE 5 MG TAB PO SCH (08:34)
[2019-04-20] MEDS: CEFEPIME 2 GM in SODIUM CHLORIDE 0.9% 100 ML IVPB SCH ×2 (08:34→20:37)
[2019-04-20] MEDS: FUROSEMIDE 40 MG TAB PO SCH ×2 (08:34→11:52)
[2019-04-20] MEDS: HYDROcodone/APAP 5-325MG 1 EACH TAB PO PRN ×2 (08:34→19:21)
[2019-04-20] MEDS: TIMOLOL 0.5% OPHTH DROPS 5 ML BTL BOTH EYES SCH (08:35)
[2019-04-20] MEDS: VANCOMYCIN 2,500 MG in SODIUM CHLORIDE 0.9% 500 ML 500 ML IVPB SCH (10:29)
--- NOTE | 2019-04-20 21:38 | PN ---
PROGRESS NOTE DATE OF SERVICE: 04/20/2019. REASON FOR FOLLOWUP: Bilateral lower extremity venous stasis ulcer and cellulitis. INTERVAL HISTORY: The patient is currently afebrile. The patient is breathing comfortably. Denies any chest pain, or any cough or abdominal pain. Overall pain and discomfort to the leg area has improved. PHYSICAL EXAMINATION: Blood pressure 113/74 with a pulse of 66, temperature 98.4. He is 98% on room air. General description is an elderly male up in the chair in no distress. Respiratory system unlabored breathing. Clear to auscultation anteriorly. Heart S1, S2. Regular rate and rhythm. Abdomen is soft, no tenderness. Legs are currently dressed up. No obvious drainage on the dressing. LABS: Hemoglobin is 11.2, white count 11.8. BUN of 15, creatinine 0.97. Wound culture now showing gram-negative bacilli. DIAGNOSTIC IMPRESSION AND PLAN: Patient with bilateral lower extremity venostasis ulcers with secondary cellulitis. Wound culture with gram-negative failing outpatient oral Keflex therapy. At this time, we will keep the patient on cefepime. Local wound care with Aquacel Silver dressing and discontinue the vancomycin as no gram-positive has been grown. Continue supportive care. MMODL / IJN: [id number] /
[2019-04-21] MEDS: ENOXAPARIN 40 MG/0.4 ML SYRINGE SQ SCH (07:32)
[2019-04-21] MEDS: METOPROLOL SUCCINATE (ER) 25 MG TAB.ER.24H PO SCH (07:32)
[2019-04-21] MEDS: FINASTERIDE 5 MG TAB PO SCH (07:32)
[2019-04-21] MEDS: CITALOPRAM HYDROBROMIDE 20 MG TAB PO SCH (07:32)
[2019-04-21] MEDS: FUROSEMIDE 40 MG TAB PO SCH ×2 (07:32→12:18)
[2019-04-21] MEDS: TAMSULOSIN 0.4 MG CAP.ER.24H PO SCH (07:32)
[2019-04-21] MEDS: PANTOPRAZOLE 40 MG TABLET PO SCH (07:32)
[2019-04-21] MEDS: ASPIRIN 81 MG PO SCH (07:32)
[2019-04-21] MEDS: HYDROcodone/APAP 5-325MG 1 EACH TAB PO PRN (07:33)
[2019-04-21] MEDS: TIMOLOL 0.5% OPHTH DROPS 5 ML BTL BOTH EYES SCH (07:33)
[2019-04-21 07:34] VITALS: BP 119/71; PULSE 69; RESP 17; TEMP 98
[2019-04-21] MEDS: CEFEPIME 2 GM in SODIUM CHLORIDE 0.9% 100 ML IVPB SCH (10:06)
--- NOTE | 2019-04-21 12:32 | P.DS ---
Providers Date of admission: 04/18/19 16:27 Attending physician: Rakesh Malave Consults: 04/19/19 12:09 Consult Physician Routine Consulting Provider: Kranthi Conner Consult Reason/Comments: cellulitis Do you want consulting provider notified?: Yes Primary care physician: [facility] Hospital Course: 68-year-old morbidly obese with bilateral venous stasis, leading to pedal edema and cellulitis and venous stasis ulcer is admitted for cellulitis and patient the wound cultures are positive for Pseudomonas and enterococcus which are pansensitive discussed with infectious disease is recommending one week of Cipro pseudomonal dosing along with Augmentin with close follow-up in wound care clinic and that homecare patient will need Jason bandages , he is on Lasix for venous stasis in both legs. On exam, alert and oriented x3. Morbidly obese HEENT: Conjunctivae normal. eyes normal. NECK: No JVD. No thyroid enlargement. No LNs CARDIOVASCULAR: S1-S2 positive RESPIRATION: Breath sounds diminished in the bases. No rhonchi or crackles. No bronchial breathing. ABDOMEN: Soft, nontender . No guarding. no masses palpable. No ascites, No hepatosplenomegaly.Bowel sounds heard. LEGS: Patient is having a red tender bilateral lower extremities. He is having some open wounds condition of bilateral lower extremity is.does have pedal edema in both lower extremity NERVOUS SYSTEM: Cranial N 2-12 grossly normal. Moves all 4 limbs. No focal deficits. No sensory deficit. No signs of cerebellar dysfucntion. Skin: no ulcer no rash Assessment and Plan Assessment: - Bilateral lower extremity cellulitis, with venous stasis ulcers - Hypertension - COPD - GERD - Obesity with possible sleep apnea Patient Condition at Discharge: Good Plan - Discharge Summary Discharge Rx Participant: No New Discharge Prescriptions: New Amoxic-Pot Clav 875-125Mg [Augmentin 875-125] 1 tab PO Q12HR #14 tablet Ciprofloxacin HCl [Cipro] 750 mg PO BID #14 tablet Continue Furosemide [Lasix] 40 mg PO BID@0700,1200 Tamsulosin HCl [Flomax] 0.4 mg PO DAILY Metoprolol Succinate (ER) [Toprol XL] 25 mg PO DAILY Finasteride [Proscar] 5 mg PO DAILY Citalopram Hydrobromide [CeleXA] 40 mg PO DAILY Aspirin EC [Ecotrin Low Dose] 81 mg PO DAILY Omeprazole 40 mg PO DAILY Timolol [Betimol 0.5% Ophth Soln] 1 drop BOTH EYES DAILY Discharge Medication List Aspirin EC [Ecotrin Low Dose] 81 mg PO DAILY 01/13/19 [History] Citalopram Hydrobromide [CeleXA] 40 mg PO DAILY 01/13/19 [History] Finasteride [Proscar] 5 mg PO DAILY 01/13/19 [History] Furosemide [Lasix] 40 mg PO BID@0700,1200 01/13/19 [History] Metoprolol Succinate (ER) [Toprol XL] 25 mg PO DAILY 01/13/19 [History] Omeprazole 40 mg PO DAILY 01/13/19 [History] Tamsulosin HCl [Flomax] 0.4 mg PO DAILY 01/13/19 [History] Timolol [Betimol 0.5% Ophth Soln] 1 drop BOTH EYES DAILY 04/18/19 [History] Amoxic-Pot Clav 875-125Mg [Augmentin 875-125] 1 tab PO Q12HR #14 tablet 04/21/19 [Rx] Ciprofloxacin HCl [Cipro] 750 mg PO BID #14 tablet 04/21/19 [Rx] Follow up Appointment(s)/Referral(s): [facility],Clinic [Primary Care Provider] - 3 Days Activity/Diet/Wound Care/Special Instructions: ANISA at [place] Discharge Disposition: HOME WITH HOME HEALTH SERVICES
--- NOTE | 2019-04-21 16:33 | PN ---
PROGRESS NOTE DATE OF SERVICE: 04/21/2019 REASON FOR FOLLOWUP: Bilateral extremity venostasis ulcers and cellulitis. INTERVAL HISTORY: The patient is currently afebrile. The patient is feeling better, breathing comfortably. Pain and swelling to the leg have improved. No chest pain, shortness of breath or cough. No abdominal pain or diarrhea. PHYSICAL EXAMINATION: Blood pressure 119/71 with a pulse of 69, temperature 98. He is 99% on room air. General description is an elderly male up in the chair in no distress. RESPIRATORY SYSTEM: Unlabored breathing. Clear to auscultation anteriorly. HEART: S1, S2. Regular rate and rhythm. ABDOMEN: Soft. No tenderness. Legs are currently wrapped up. No drainage on the dressing. LABS: Creatinine is 1.13. Wound culture finalized with Pseudomonas aeruginosa and Enterococcus faecalis. DIAGNOSTIC IMPRESSION AND PLAN: Patient with bilateral extremity venostasis ulcers and secondary cellulitis. Local wound care. Continue Aquacel Silver dressing. Antibiotic was switched over to oral Cipro and Augmentin for about a week with close outpatient followup. Continue supportive care. Plan of care was discussed with the admitting physician. MMODL / IJN: [id number] /
== END 2019-04-21 17:25 | disposition home health service (06) | DRG 603 ==
LOC: EC 14:23 → 4SSUR 16:27
PROVIDERS: ADMIT Hospitalist; ATTEND Hospitalist
PROC: 05HQ33Z Insertion of Infusion Device into Left External Jugular Vein, Percutaneous Approach (ICD-10-PCS; principal; 2019-04-21 08:50)
DX: L03.115 Cellulitis of right lower limb (principal); L97.919 Non-pressure chronic ulcer of unspecified part of right lower leg with unspecified severity; L97.929 Non-pressure chronic ulcer of unspecified part of left lower leg with unspecified severity; Z68.42 Body mass index [BMI] 45.0-49.9, adult; L03.116 Cellulitis of left lower limb; I87.8 Other specified disorders of veins; I83.009 Varicose veins of unspecified lower extremity with ulcer of unspecified site; E11.9 Type 2 diabetes mellitus without complications; E66.01 Morbid (severe) obesity due to excess calories; F32.9 Major depressive disorder, single episode, unspecified; F41.9 Anxiety disorder, unspecified; I10 Essential (primary) hypertension; J44.9 Chronic obstructive pulmonary disease, unspecified; K21.9 Gastro-esophageal reflux disease without esophagitis; Z79.82 Long term (current) use of aspirin; Z79.899 Other long term (current) drug therapy; N28.9 Disorder of kidney and ureter, unspecified; T36.8X5A Adverse effect of other systemic antibiotics, initial encounter; B96.5 Pseudomonas (aeruginosa) (mallei) (pseudomallei) as the cause of diseases classified elsewhere; B95.2 Enterococcus as the cause of diseases classified elsewhere; G47.30 Sleep apnea, unspecified
CPT/HCPCS: 36415; 80048; 80053; 82565; 83605; 83735; 84100; 84484; 85025; 85027; 85610; 85730; 87040; 87070; 87075; 87077; 87186; 87205; 93005; 96365; 96366; 96367; 99285

== ENCOUNTER 2019-05-13 19:32 | Emergency (ER) | payer OTHER, MEDICARE ==
[2019-05-13 19:43] VITALS: TEMP 97.1
[2019-05-13] MEDS ORDERED: IBUPROFEN 600 MG TAB PO STA (20:53)
--- NOTE | 2019-05-13 21:04 | ED ---
Extremity Problem HPI - General Chief complaint: Extremity Problem,Nontraumatic Stated complaint: Leg Pain Time Seen by Provider: 05/13/19 19:34 Source: patient, EMS Mode of arrival: EMS - History of Present Illness Initial comments: 68-year-old male patient presents to the emergency department today for evaluation of lower leg edema, weeping, and wounds. Patient states for the last month or so he has had wounds to the bilateral lower extremities. Patient states over the last 3 weeks they have been weeping. Patient states he is experiencing a stinging sensation to the areas. Patient states he does get his legs wrapped daily by his home health aide. Denies applying any medications to the area. He denies any fever or chills. Denies any worsening of the swelling or pain with the swelling. Patient does take a diuretic twice daily, states he has been use this as directed. States he keeps his legs elevated as much as possible. He receives care [facility]. Patient denies any recent rash, shortness breath, chest pain, abdominal pain, nausea, vomiting, diarrhea, constipation, back pain, numbness, tingling, dizziness, weakness, hematuria, dysuria, urinary urgency, urinary frequency, headache, visual changes, or any other complaints. - Related Data Home Medications Medication Instructions Recorded Confirmed RX: Aspirin EC [Ecotrin Low Dose] 81 mg PO DAILY 01/13/19 04/18/19 RX: Citalopram Hydrobromide 40 mg PO DAILY 01/13/19 04/18/19 [CeleXA] RX: Finasteride [Proscar] 5 mg PO DAILY 01/13/19 04/18/19 RX: Furosemide [Lasix] 40 mg PO BID@0700,1200 01/13/19 04/18/19 RX: Metoprolol Succinate (ER) 25 mg PO DAILY 01/13/19 04/18/19 [Toprol XL] RX: Omeprazole 40 mg PO DAILY 01/13/19 04/18/19 RX: Tamsulosin HCl [Flomax] 0.4 mg PO DAILY 01/13/19 04/18/19 RX: Timolol [Betimol 0.5% Ophth 1 drop BOTH EYES DAILY 04/18/19 04/18/19 Soln] Previous Rx's Medication Instructions Recorded Amoxic-Pot Clav 875-125Mg 1 tab PO Q12HR #14 tablet 04/21/19 [Augmentin 875-125] Ciprofloxacin HCl [Cipro] 750 mg PO BID #14 tablet 04/21/19 Cephalexin [Keflex] 500 mg PO Q6HR #40 cap 05/13/19 Allergies Allergy/AdvReac Type Severity Reaction Status Date / Time No Known Allergies Allergy Verified 05/13/19 19:43 Review of Systems ROS Statement: Those systems with pertinent positive or pertinent negative responses have been documented in the HPI. ROS Other: All systems not noted in ROS Statement are negative. Past Medical History Past Medical History: COPD, GERD/Reflux, Hypertension, Prostate Disorder History of Any Multi-Drug Resistant Organisms: None Reported Past Surgical History: Tonsillectomy Past Psychological History: Anxiety, Depression Smoking Status: Never smoker Past Alcohol Use History: Rare Past Drug Use History: None Reported - Past Family History Father Family Medical History: No Reported History General Exam General appearance: alert, in no apparent distress, other (This is a well- developed, well-nourished adult male patient in no acute distress. Vital signs upon presentation are temperature 97.1F, pulse 85, respirations 18, blood pressure 117/59, pulse ox 100% on room air.) Eye exam: Present: normal appearance, PERRL, EOMI. Absent: scleral icterus, conjunctival injection, periorbital swelling ENT exam: Present: normal exam, normal oropharynx, mucous membranes moist Respiratory exam: Present: normal lung sounds bilaterally. Absent: respiratory distress, wheezes, rales, rhonchi, stridor Cardiovascular Exam: Present: regular rate, normal rhythm, normal heart sounds. Absent: systolic murmur, diastolic murmur, rubs, gallop, clicks GI/Abdominal exam: Present: soft, normal bowel sounds. Absent: distended, tenderness, guarding, rebound, rigid Extremities exam: Present: full ROM, normal capillary refill, other (Patient has lower leg edema and erythema. There are multiple superficial ulcerations noted to the left anterior lower leg and posterior lower leg. These are weeping serous fluid. Edema is 2+ pitting. Pedal pulses 1+.). Absent: normal inspection, tenderness, pedal edema, joint swelling, calf tenderness Neurological exam: Present: alert, oriented X3, CN II-XII intact Psychiatric exam: Present: normal affect, normal mood Skin exam: Present: warm, dry, intact, normal color. Absent: rash Course Vital Signs 05/13/19 05/13/19 05/13/19 19:37 21:30 23:08 Temperature 97.1 F L Pulse Rate 85 90 87 Respiratory 18 20 18 Rate Blood Pressure 117/59 113/96 135/74 O2 Sat by Pulse 100 96 100 Oximetry Medical Decision Making - Medical Decision Making 68-year-old male patient presents to the emergency department today for evaluation of bilateral lower extremity wounds. Physical examination did reveal lower extremity edema, erythema, and superficial ulcerations to the both lower legs. Patient reports this is been going on for the last month. Patient is afebrile with normal vital signs. Labs revealed and showed leukocytosis at 12.6. Patient is receiving wound care at home by his home health nurse. He does take a diuretic for the swelling. He'll be given antibiotics for cellulitis. He is instructed follow-up with his primary care physician for recheck of the wounds and legs in 1-2 days. Return parameters were discussed in detail. He verbalizes understanding and agrees with this plan. - Lab Data Result diagrams: 05/13/19 21:28 05/13/19 21:28 Lab Results 05/13/19 05/13/19 Range/Units 21:28 21:28 WBC 12.6 H (3.8-10.6) k/uL RBC 4.18 L (4.30-5.90) m/uL Hgb 12.8 L (13.0-17.5) gm/dL Hct 38.1 L (39.0-53.0) % MCV 91.2 (80.0-100.0) fL MCH 30.5 (25.0-35.0) pg MCHC 33.5 (31.0-37.0) g/dL RDW 13.3 (11.5-15.5) % Plt Count 369 (150-450) k/uL Neutrophils % 71 % Lymphocytes % 12 % Monocytes % 7 % Eosinophils % 8 % Basophils % 1 % Neutrophils # 8.9 H (1.3-7.7) k/uL Lymphocytes # 1.6 (1.0-4.8) k/uL Monocytes # 0.9 (0-1.0) k/uL Eosinophils # 1.0 H (0-0.7) k/uL Basophils # 0.1 (0-0.2) k/uL Sodium 139 (137-145) mmol/L Potassium 4.2 (3.5-5.1) mmol/L Chloride 100 (98-107) mmol/L Carbon Dioxide 27 (22-30) mmol/L Anion Gap 12 mmol/L BUN 19 (9-20) mg/dL Creatinine 1.19 (0.66-1.25) mg/dL Est GFR (CKD-EPI)AfAm 72 (>60 ml/min/1.73 sqM) Est GFR (CKD-EPI)NonAf 62 (>60 ml/min/1.73 sqM) Glucose 139 H (74-99) mg/dL Calcium 9.0 (8.4-10.2) mg/dL Total Bilirubin 0.4 (0.2-1.3) mg/dL AST 35 (17-59) U/L ALT 20 L (21-72) U/L Alkaline Phosphatase 108 (38-126) U/L Total Protein 7.6 (6.3-8.2) g/dL Albumin 4.1 (3.5-5.0) g/dL Disposition Clinical Impression: Lower extremity cellulitis Disposition: HOME SELF-CARE Condition: Good Instructions (If sedation given, give patient instructions): Cellulitis (ED) Additional Instructions: Keep leg is wrapped as directed. Follow up with her primary care physician for recheck of the wounds and legs in 1-2 days. Complete antibiotic prescription in full. Return to the emergency department immediately for any new, worsening, or concerning symptoms. Prescriptions: Cephalexin [Keflex] 500 mg PO Q6HR #40 cap Is patient prescribed a controlled substance at d/c from ED?: No Referrals: [facility],Clinic [Primary Care Provider] - 1-2 days Time of Disposition: 22:31
[2019-05-13 21:41] LABS: Basophils # (A) 0.1 k/uL (0-0.2); Basophils % (A) 1 %; Eosinophils % (A) 8 %; HCT 38.1 % (39.0-53.0); HGB 12.8 gm/dL (13.0-17.5); Lymphocytes # (A) 1.6 k/uL (1.0-4.8); Lymphocytes % (A) 12 %; MCH 30.5 pg (25.0-35.0); MCHC 33.5 g/dL (31.0-37.0); MCV 91.2 fL (80.0-100.0); Mean Platelet Volume 6.6; Monocytes # (A) 0.9 k/uL (0-1.0); Monocytes % (A) 7 %; Neutrophils # (A) 8.9 k/uL (1.3-7.7); Neutrophils % (A) 71 %; Platelet Count 369 k/uL (150-450); RBC 4.18 m/uL (4.30-5.90); RDW 13.3 % (11.5-15.5); WBC 12.6 k/uL (3.8-10.6)
[2019-05-13 22:00] LABS: Albumin 4.1 g/dL (3.5-5.0); Potassium 4.2 mmol/L (3.5-5.1); Total Bilirubin 0.4 mg/dL (0.2-1.3); Total Protein 7.6 g/dL (6.3-8.2)
[2019-05-13] MEDS ORDERED: CEPHALEXIN 500MG STARTER PACK 4 CAP BTL PO STA (22:29)
[2019-05-13 23:10] VITALS: BP 135/74; PULSE 87; RESP 18
== END 2019-05-13 23:10 | disposition home or self-care (01) ==
LOC: EC 19:32
DX: L03.115 Cellulitis of right lower limb (principal); L03.116 Cellulitis of left lower limb; L97.829 Non-pressure chronic ulcer of other part of left lower leg with unspecified severity; K21.9 Gastro-esophageal reflux disease without esophagitis; I10 Essential (primary) hypertension; N42.9 Disorder of prostate, unspecified; F41.9 Anxiety disorder, unspecified; F32.9 Major depressive disorder, single episode, unspecified; Z79.82 Long term (current) use of aspirin; Z79.899 Other long term (current) drug therapy
CPT/HCPCS: 36415; 80053; 85025; 99283

== ENCOUNTER 2019-05-22 03:03 | Emergency (ER) | payer OTHER, MEDICARE ==
--- NOTE | 2019-05-22 03:20 | ED ---
General Adult HPI - General Stated complaint: Rash Time Seen by Provider: 05/22/19 03:05 Source: patient, EMS, old records reviewed Mode of arrival: EMS Limitations: no limitations - History of Present Illness Initial comments: 68-year-old male with a past medical history of COPD, GERD, hypertension presents to the emergency department for a chief complaint of rash. Patient st ates that he started to develop a red itchy rash on his upper back yesterday evening. Patient states he has been on Keflex for about 7 days. States he thinks this is related. Patient denies any new detergents. Denies any other new medications. Denies recent travel. Patient states he is on Keflex to prevent infection in his legs. States they appear as they have always for years. Denies any fevers or chills. Denies any swelling of the lips tongue or throat.Patient has no other complaints at this time including shortness of breath, chest pain, abdominal pain, nausea or vomiting, headache, or visual changes. - Related Data Home Medications Medication Instructions Recorded Confirmed Aspirin EC [Ecotrin Low Dose] 81 mg PO DAILY 01/13/19 04/18/19 Citalopram Hydrobromide [CeleXA] 40 mg PO DAILY 01/13/19 04/18/19 Finasteride [Proscar] 5 mg PO DAILY 01/13/19 04/18/19 Furosemide [Lasix] 40 mg PO BID@0700,1200 01/13/19 04/18/19 Metoprolol Succinate (ER) [Toprol 25 mg PO DAILY 01/13/19 04/18/19 XL] Omeprazole 40 mg PO DAILY 01/13/19 04/18/19 Tamsulosin HCl [Flomax] 0.4 mg PO DAILY 01/13/19 04/18/19 Timolol [Betimol 0.5% Ophth Soln] 1 drop BOTH EYES DAILY 04/18/19 04/18/19 Previous Rx's Medication Instructions Recorded Amoxic-Pot Clav 875-125Mg 1 tab PO Q12HR #14 tablet 04/21/19 [Augmentin 875-125] Ciprofloxacin HCl [Cipro] 750 mg PO BID #14 tablet 04/21/19 Cephalexin [Keflex] 500 mg PO Q6HR #40 cap 05/13/19 Allergies Allergy/AdvReac Type Severity Reaction Status Date / Time No Known Allergies Allergy Verified 05/13/19 19:43 Review of Systems ROS Statement: Those systems with pertinent positive or pertinent negative responses have been documented in the HPI. ROS Other: All systems not noted in ROS Statement are negative. Past Medical History Past Medical History: COPD, GERD/Reflux, Hypertension, Prostate Disorder History of Any Multi-Drug Resistant Organisms: None Reported Past Surgical History: Tonsillectomy Past Psychological History: Anxiety, Depression Smoking Status: Never smoker Past Alcohol Use History: Rare Past Drug Use History: None Reported - Past Family History Father Family Medical History: No Reported History General Exam General appearance: alert, in no apparent distress Head exam: Present: atraumatic, normocephalic, normal inspection Eye exam: Present: normal appearance, PERRL, EOMI. Absent: scleral icterus, conjunctival injection, periorbital swelling ENT exam: Present: normal exam, mucous membranes moist Neck exam: Present: normal inspection, full ROM. Absent: tenderness, meningismus, lymphadenopathy Respiratory exam: Present: normal lung sounds bilaterally. Absent: respiratory distress, wheezes, rales, rhonchi, stridor Cardiovascular Exam: Present: regular rate, normal rhythm, normal heart sounds. Absent: systolic murmur, diastolic murmur, rubs, gallop, clicks Extremities exam: Present: normal capillary refill (Capillary refill less than 2 seconds in bilateral lower extremities.), pedal edema (Patient does have chronic pedal edema noted with mild erythema likely secondary to venous stasis.) Neurological exam: Present: alert, oriented X3 Psychiatric exam: Present: normal affect, normal mood Medical Decision Making - Medical Decision Making 68-year-old male presents to the emergency department for a chief complaint of rash. Patient states he has an erythematous itchy rash noted to his upper back. States this started yesterday. Patient has been on Keflex for about 7 days, no other medication changes. On exam patient does have erythematous small macular lesions noted to the upper back. This is likely secondary to a drug eruption from Keflex. Patient was apparently punched Keflex for prophylactic antibiotic treatment according to him for cellulitis. States his lateral legs have appeared this red for several years and has not worsened. Erythema is likely secondary to venous stasis. Patient has not had any fevers. Therefore Keflex will be discontinued and patient was given Benadryl. He will continue to take Benadryl at home. He will return if he has any other worsening symptoms including sling of the lips tongue or throat. Dr Stafford also visualized the rash. Disposition Clinical Impression: Drug eruption Disposition: HOME SELF-CARE Condition: Good Instructions (If sedation given, give patient instructions): Acute Rash (ED) Additional Instructions: Discontinue Keflex. Please take Benadryl as needed. Please follow-up with primary care in 1-2 days. Please return to the emergency department if you have any worsening symptoms. Is patient prescribed a controlled substance at d/c from ED?: No Referrals: [facility],Clinic [Primary Care Provider] - 1-2 days Time of Disposition: 03:22
[2019-05-22] MEDS ORDERED: diphenhydrAMINE 50 MG CAP PO STA (03:27)
[2019-05-22 03:36] VITALS: BP 137/79; PULSE 79; RESP 18; TEMP 98
== END 2019-05-22 04:09 | disposition home or self-care (01) ==
LOC: EC 03:03
DX: L27.0 Generalized skin eruption due to drugs and medicaments taken internally (principal); T36.1X5A Adverse effect of cephalosporins and other beta-lactam antibiotics, initial encounter; I10 Essential (primary) hypertension; K21.9 Gastro-esophageal reflux disease without esophagitis; F41.9 Anxiety disorder, unspecified; F32.9 Major depressive disorder, single episode, unspecified; Z79.82 Long term (current) use of aspirin; Z79.899 Other long term (current) drug therapy
CPT/HCPCS: 99283

== ENCOUNTER 2019-05-26 23:09 | Emergency (ER) | payer OTHER, MEDICARE ==
[2019-05-26 23:50] VITALS: RESP 18; TEMP 97.2
--- NOTE | 2019-05-27 00:51 | ED ---
General Adult HPI - General Chief complaint: Fall Stated complaint: fall Time Seen by Provider: 05/26/19 23:29 Source: patient, EMS, RN notes reviewed, old records reviewed Mode of arrival: EMS Limitations: no limitations, physical limitation - History of Present Illness Initial comments: 68-year-old male patient presents ED chief complaint of right shoulder pain. Patient reports that he rolled out of bed landing on his right shoulder. Denies any trauma to head or neck. Patient does have full range of motion of shoulder, states that pain has decreased. Denies any other complaints. Denies any use of blood thinners. Systemic: Pt denies fatigue, fever/chills, rash. Pt denies weakness, night sweats, weight loss. Neuro: Pt denies headache, visual disturbances, syncope or pre-syncope. HEENT: Pt denies ocular discharge or irritation, otalgia, rhinorrhea, pharyngitis or notable lymphadenopathy. Cardiopulmonary: Pt denies chest pain, SOB, heart palpitations, dyspnea on exertion. Abdominal/GI: Pt denies abdominal pain, n/v/d. : Pt denies dysuria, burning w/ urination, frequency/urgency. Denies new onset urinary or bowel incontinence. MSK: Pt denies myalgia, loss of strength or function in extremities. Neuro: Pt denies new onset weakness, paresthesias. - Related Data Home Medications Medication Instructions Recorded Confirmed Aspirin EC [Ecotrin Low Dose] 81 mg PO DAILY 01/13/19 04/18/19 Citalopram Hydrobromide [CeleXA] 40 mg PO DAILY 01/13/19 04/18/19 Finasteride [Proscar] 5 mg PO DAILY 01/13/19 04/18/19 Furosemide [Lasix] 40 mg PO BID@0700,1200 01/13/19 04/18/19 Metoprolol Succinate (ER) [Toprol 25 mg PO DAILY 01/13/19 04/18/19 XL] Omeprazole 40 mg PO DAILY 01/13/19 04/18/19 Tamsulosin HCl [Flomax] 0.4 mg PO DAILY 01/13/19 04/18/19 Timolol [Betimol 0.5% Ophth Soln] 1 drop BOTH EYES DAILY 04/18/19 04/18/19 Previous Rx's Medication Instructions Recorded Amoxic-Pot Clav 875-125Mg 1 tab PO Q12HR #14 tablet 04/21/19 [Augmentin 875-125] Ciprofloxacin HCl [Cipro] 750 mg PO BID #14 tablet 04/21/19 Cephalexin [Keflex] 500 mg PO Q6HR #40 cap 05/13/19 diphenhydrAMINE [Benadryl] 50 mg PO QID PRN #20 capsule 05/22/19 Allergies Allergy/AdvReac Type Severity Reaction Status Date / Time No Known Allergies Allergy Verified 05/13/19 19:43 Review of Systems ROS Statement: Those systems with pertinent positive or pertinent negative responses have been documented in the HPI. ROS Other: All systems not noted in ROS Statement are negative. Past Medical History Past Medical History: COPD, GERD/Reflux, Hypertension, Prostate Disorder History of Any Multi-Drug Resistant Organisms: None Reported Past Surgical History: Tonsillectomy Past Psychological History: Anxiety, Depression Smoking Status: Never smoker Past Alcohol Use History: Rare Past Drug Use History: None Reported - Past Family History Father Family Medical History: No Reported History General Exam - General Exam Comments Initial Comments: Constitutional: NAD, AOX3, Pt has pleasant affect. HEENT: NC/AT, trachea midline, neck supple, no lymphadenopathy. Posterior pharynx non erythematous, without exudates. External ears appear normal, without discharge. Mucous membranes moist. Eyes PERRLA, EOM intact. There is no scleral icterus. No pallor noted. Cardiopulmonary: RRR, no murmurs, rubs or gallops, no JVD noted. Lungs CTAB in anterior and posterior hendricks. No peripheral edema. Abdominal exam: Abdomen soft and non-distended. Abdomen non-tender to palpation in all 4 quadrants. Bowel sounds active in LLQ. No hepatosplenomegaly. No ecchymosis Neuro: CN II-XII grossly intact. No nuchal rigidity. No raccon eyes, no rooney sign, no hemotympanum. No cervical spinal tenderness. MSK: Right shoulder mildly tender to palpation, no ecchymoses, full active range of motion. No posterior calf tenderness bilaterally, homans sign negative bilaterally. Posterior tibialis and radial pulse +2 bilaterally. Sensation intact in upper and lower extremities. Full active ROM in upper and lower extremities, 5/5 stregnth. Limitations: no limitations, physical limitation Course Vital Signs 05/26/19 05/26/19 23:46 23:49 Temperature 97.2 F L Pulse Rate 81 Respiratory 18 Rate Blood Pressure 102/48 O2 Sat by Pulse 95 Oximetry Medical Decision Making - Medical Decision Making 68-year-old male patient presents ED chief complaint of right shoulder pain. Patient reports that he rolled out of bed landing on his right shoulder. Denies any trauma to head or neck. Patient does have full range of motion of shoulder, states that pain has decreased. Denies any other complaints. Denies any use of blood thinners. Patient vital signs stable, afebrile. Physical exam displayed right shoulder mildly tender to palpation, full active range of motion, no ecchymoses. Plain film of shoulder, chest x-ray did not display acute process. Patient will discharge patient will follow-up with primary care provider. Return precautions discussed. Case discussed with Dr. Scales. Disposition Clinical Impression: Shoulder sprain Disposition: HOME SELF-CARE Condition: Stable Instructions (If sedation given, give patient instructions): Shoulder Sprain (ED) Additional Instructions: Patient to adhere to previously discussed treatment plan and will take medication(s) as directed. Patient to follow up with PCP in 1-2 days. Patient to return to ED if symptoms do not improve. Follow-up with primary care provider tomorrow return to ER if condition worsens. Is patient prescribed a controlled substance at d/c from ED?: No Referrals: [facility],Clinic [Primary Care Provider] - 1-2 days
--- NOTE | 2019-05-27 00:59 | XR ---
EXAM: XR Right Shoulder Complete, 2 or More Views CLINICAL HISTORY: ITS.REASON XR Reason: Pain TECHNIQUE: Two or more views of the right shoulder. COMPARISON: None. FINDINGS: Bones/joints: Moderate arthrosis of the acromioclavicular joint. No acute fracture. No dislocation. Soft tissues: Unremarkable. IMPRESSION: 1. No acute osseous abnormality. 2. Moderate arthrosis of the acromioclavicular joint.
--- NOTE | 2019-05-27 01:01 | XR ---
EXAM: XR Chest, 2 Views CLINICAL HISTORY: ITS.REASON XR Reason: Pain TECHNIQUE: Frontal and lateral views of the chest. COMPARISON: Chest radiograph 01/13/2019. FINDINGS: Lungs: Unremarkable. No consolidation. Pleural space: Unremarkable. No pneumothorax. Heart: Cardiomegaly. Mediastinum: Unremarkable. Bones/joints: Degenerative changes seen in the thoracic spine. IMPRESSION: 1. No acute cardiopulmonary abnormality. 2. Cardiomegaly.
[2019-05-27 01:55] VITALS: BP 107/62; PULSE 79
== END 2019-05-27 02:31 | disposition home or self-care (01) ==
LOC: EC 23:09
DX: S43.401A Unspecified sprain of right shoulder joint, initial encounter (principal); K21.9 Gastro-esophageal reflux disease without esophagitis; I10 Essential (primary) hypertension; N42.9 Disorder of prostate, unspecified; F41.9 Anxiety disorder, unspecified; F32.9 Major depressive disorder, single episode, unspecified; Z79.82 Long term (current) use of aspirin; Z79.899 Other long term (current) drug therapy; W06.XXXA Fall from bed, initial encounter; Y92.009 Unspecified place in unspecified non-institutional (private) residence as the place of occurrence of the external cause
CPT/HCPCS: 71046; 99284

== ENCOUNTER 2019-05-27 23:55 | Inpatient (IN) | payer OTHER, MEDICARE ==
[2019-05-28] MEDS ORDERED: HYDROcodone/APAP 5-325MG 1 EACH TAB PO STA (00:52)
--- NOTE | 2019-05-28 00:56 | ED ---
General Adult HPI - General Source: patient, EMS Mode of arrival: EMS Limitations: physical limitation <Emilia Landers - Last Filed: 05/28/19 03:42> <Reynaldo Celeste - Last Filed: 05/28/19 06:42> - General Chief complaint: Fall Stated complaint: Fall Time Seen by Provider: 05/28/19 00:01 - History of Present Illness Initial comments: 68-year-old male patient presents to the emergency department for evaluation after experiencing a fall. Patient is currently residing at [facility]. Recent states that he was scratching his back in bed when he rolled to far and focal out of bed onto the floor. Patient denies any injuries from this fall. Denies hitting his head or losing consciousness. States he is having some low back pain but this is usual for his chronic back pain pattern. Patient denies any radiating pain down the legs, loss of bowel or bladder control, saddle anesthesia, or lower extremity numbness or tingling. Denies any current headache, blurred vision, double vision, neck pain, nausea, or vomiting. Denies any numbness, tingling, or weakness. Patient was seen and evaluated here in the emergency department for similar complaint yesterday evening. Nursing staff in the emergency department state that patient's speech seems different than yesterday and he is more difficult to understand. Family member states that he has been experiencing more frequent falls lately and they are working on admitting him to a long-term care facility with more support. Patient denies any recent rash, fever, chills, shortness breath, chest pain, abdominal pain, nausea, vomiting, diarrhea, constipation, hematuria, dysuria, urinary urgency, urinary frequency, or any other complaints. (Emilia Landers) - Related Data Home Medications Medication Instructions Recorded Confirmed Aspirin EC [Ecotrin Low Dose] 81 mg PO DAILY 01/13/19 05/28/19 Citalopram Hydrobromide [CeleXA] 40 mg PO DAILY 01/13/19 05/28/19 Finasteride [Proscar] 5 mg PO DAILY 01/13/19 05/28/19 Furosemide [Lasix] 40 mg PO BID@0700,1200 01/13/19 05/28/19 Metoprolol Succinate (ER) [Toprol 25 mg PO DAILY 01/13/19 05/28/19 XL] Omeprazole 40 mg PO DAILY 01/13/19 05/28/19 Tamsulosin HCl [Flomax] 0.4 mg PO DAILY 01/13/19 05/28/19 Timolol [Betimol 0.5% Ophth Soln] 1 drop BOTH EYES DAILY 04/18/19 05/28/19 Previous Rx's Medication Instructions Recorded Amoxic-Pot Clav 875-125Mg 1 tab PO Q12HR #14 tablet 04/21/19 [Augmentin 875-125] Ciprofloxacin HCl [Cipro] 750 mg PO BID #14 tablet 04/21/19 Cephalexin [Keflex] 500 mg PO Q6HR #40 cap 05/13/19 diphenhydrAMINE [Benadryl] 50 mg PO QID PRN #20 capsule 05/22/19 Allergies Allergy/AdvReac Type Severity Reaction Status Date / Time No Known Allergies Allergy Verified 05/13/19 19:43 Review of Systems ROS Other: All systems not noted in ROS Statement are negative. <Emilia Landers - Last Filed: 05/28/19 03:42> ROS Other: All systems not noted in ROS Statement are negative. <Reynaldo Celeste - Last Filed: 05/28/19 06:42> ROS Statement: Those systems with pertinent positive or pertinent negative responses have been documented in the HPI. Past Medical History Past Medical History: COPD, GERD/Reflux, Hypertension, Prostate Disorder History of Any Multi-Drug Resistant Organisms: None Reported Past Surgical History: Tonsillectomy Past Psychological History: Anxiety, Depression Smoking Status: Never smoker Past Alcohol Use History: Rare Past Drug Use History: None Reported - Past Family History Father Family Medical History: No Reported History <Emilia Landers - Last Filed: 05/28/19 03:42> General Exam Limitations: physical limitation General appearance: alert, in no apparent distress, other (This a well- developed, well-nourished adult male patient in no acute distress. Vital signs upon presentation are temperature 97.7F, pulse 80, respirations 20, blood pressure 111/69, pulse ox 94% on room air.) Eye exam: Present: normal appearance, PERRL, EOMI. Absent: scleral icterus, conjunctival injection, periorbital swelling ENT exam: Present: normal exam, normal oropharynx, mucous membranes moist Respiratory exam: Present: normal lung sounds bilaterally. Absent: respiratory distress, wheezes, rales, rhonchi, stridor Cardiovascular Exam: Present: regular rate, normal rhythm, normal heart sounds. Absent: systolic murmur, diastolic murmur, rubs, gallop, clicks GI/Abdominal exam: Present: soft, normal bowel sounds. Absent: distended, tenderness, guarding, rebound, rigid Back exam: Present: normal inspection. Absent: vertebral tenderness Neurological exam: Present: alert, oriented X3, CN II-XII intact Expanded Patient oriented to: Present: person, place, time Speech: Present: expressive aphasia Motor strength exam: RUE: 5, LUE: 5, RLE: 5, LLE: 5 Psychiatric exam: Present: normal affect, normal mood Skin exam: Present: warm, dry, intact, normal color. Absent: rash <Emilia Landers - Last Filed: 05/28/19 03:42> Course Vital Signs 05/27/19 05/28/19 05/28/19 23:59 01:49 03:25 Temperature 97.7 F 97.9 F Pulse Rate 80 80 74 Respiratory 20 20 19 Rate Blood Pressure 111/69 113/86 106/71 O2 Sat by Pulse 94 L 95 95 Oximetry 05/28/19 05:19 Temperature Pulse Rate 76 Respiratory 20 Rate Blood Pressure 110/76 O2 Sat by Pulse 95 Oximetry Medical Decision Making - Lab Data Result diagrams: 05/28/19 01:43 05/28/19 01:43 - Radiology Data Radiology results: report reviewed, image reviewed <Emilia Landers - Last Filed: 05/28/19 03:42> - Lab Data Result diagrams: 05/28/19 01:43 05/28/19 01:43 <Reynaldo Celeste - Last Filed: 05/28/19 06:42> - Medical Decision Making 68-year-old male patient presented to the emergency department today for evaluation of frequent falls. Physical examination is relatively unremarkable. He denied any injury today. Nursing staff here at this facility state they took care of the patient last night and his speech was more slurred and difficult to understand today. Patient does not believe his speech is altered. Labs reviewed and did reveal increased BUN and creatinine indicating acute kidney injury mostly from dehydration. EMS staff state that patient's home was unkempt, he has no food available, and there is a strong odor. Patient has been experiencing frequent falls over the last couple of months. Sr. with orthopedics placement at a extended care facility. We will admit patient for speech disturbance, frequent falls, and acute kidney injury. We'll consult social work. We'll consult neurology. (Emilai Landers) I saw this patient in conjunction with the physician surgical supply assistant. I performed independent history and physical exam. Agree with case management. (Reynaldo Celeste) - Lab Data Lab Results 05/28/19 05/28/19 05/28/19 Range/Units 01:43 01:43 01:43 WBC 10.1 (3.8-10.6) k/uL RBC 3.79 L (4.30-5.90) m/uL Hgb 11.4 L (13.0-17.5) gm/dL Hct 34.4 L (39.0-53.0) % MCV 90.8 (80.0-100.0) fL MCH 30.0 (25.0-35.0) pg MCHC 33.0 (31.0-37.0) g/dL RDW 13.8 (11.5-15.5) % Plt Count 321 (150-450) k/uL Neutrophils % 67 % Lymphocytes % 14 % Monocytes % 8 % Eosinophils % 9 % Basophils % 1 % Neutrophils # 6.7 (1.3-7.7) k/uL Lymphocytes # 1.4 (1.0-4.8) k/uL Monocytes # 0.8 (0-1.0) k/uL Eosinophils # 0.9 H (0-0.7) k/uL Basophils # 0.1 (0-0.2) k/uL PT 10.2 (9.0-12.0) sec INR 0.9 (<1.2) APTT 23.4 (22.0-30.0) sec Sodium 138 (137-145) mmol/L Potassium 3.1 L (3.5-5.1) mmol/L Chloride 101 (98-107) mmol/L Carbon Dioxide 27 (22-30) mmol/L Anion Gap 10 mmol/L BUN 33 H (9-20) mg/dL Creatinine 1.64 H (0.66-1.25) mg/dL Est GFR (CKD-EPI)AfAm 49 (>60 ml/min/1.73 sqM) Est GFR (CKD-EPI)NonAf 42 (>60 ml/min/1.73 sqM) Glucose 117 H (74-99) mg/dL Calcium 8.1 L (8.4-10.2) mg/dL Total Bilirubin 0.3 (0.2-1.3) mg/dL AST 38 (17-59) U/L ALT 25 (21-72) U/L Alkaline Phosphatase 82 (38-126) U/L Troponin I (0.000-0.034) ng/mL Total Protein 6.2 L (6.3-8.2) g/dL Albumin 3.3 L (3.5-5.0) g/dL 05/28/19 Range/Units 01:43 WBC (3.8-10.6) k/uL RBC (4.30-5.90) m/uL Hgb (13.0-17.5) gm/dL Hct (39.0-53.0) % MCV (80.0-100.0) fL MCH (25.0-35.0) pg MCHC (31.0-37.0) g/dL RDW (11.5-15.5) % Plt Count (150-450) k/uL Neutrophils % % Lymphocytes % % Monocytes % % Eosinophils % % Basophils % % Neutrophils # (1.3-7.7) k/uL Lymphocytes # (1.0-4.8) k/uL Monocytes # (0-1.0) k/uL Eosinophils # (0-0.7) k/uL Basophils # (0-0.2) k/uL PT (9.0-12.0) sec INR (<1.2) APTT (22.0-30.0) sec Sodium (137-145) mmol/L Potassium (3.5-5.1) mmol/L Chloride (98-107) mmol/L Carbon Dioxide (22-30) mmol/L Anion Gap mmol/L BUN (9-20) mg/dL Creatinine (0.66-1.25) mg/dL Est GFR (CKD-EPI)AfAm (>60 ml/min/1.73 sqM) Est GFR (CKD-EPI)NonAf (>60 ml/min/1.73 sqM) Glucose (74-99) mg/dL Calcium (8.4-10.2) mg/dL Total Bilirubin (0.2-1.3) mg/dL AST (17-59) U/L ALT (21-72) U/L Alkaline Phosphatase (38-126) U/L Troponin I <0.012 (0.000-0.034) ng/mL Total Protein (6.3-8.2) g/dL Albumin (3.5-5.0) g/dL - Radiology Data CT head without contrast was obtained. Report was reviewed in its entirety. Impression by Dr. Doshi shows no acute hemorrhage, hydrocephalus, or mass effect. Two-view x-ray of the chest was obtained. Report was reviewed in its entirety. Impression by Dr. Doshi shows cardiomegaly. Increased opacities in the bilateral lower lobes, possibly atelectasis versus aspiration. (Emilia Landers) Disposition Is patient prescribed a controlled substance at d/c from ED?: No Time of Disposition: 03:30 <Emilia Landers - Last Filed: 05/28/19 03:42> <Reynaldo Celeste - Last Filed: 05/28/19 06:42> Clinical Impression: Fall, Speech disturbance, Dehydration, Acute kidney injury, Frequent falls Disposition: ADMITTED IP TO THIS HOSP Condition: Serious
[2019-05-28 01:50] LABS: Basophils # (A) 0.1 k/uL (0-0.2); Basophils % (A) 1 %; Eosinophils # (A) 0.9 k/uL (0-0.7); Eosinophils % (A) 9 %; HCT 34.4 % (39.0-53.0); HGB 11.4 gm/dL (13.0-17.5); Lymphocytes # (A) 1.4 k/uL (1.0-4.8); Lymphocytes % (A) 14 %; MCV 90.8 fL (80.0-100.0); Mean Platelet Volume 6.7; Monocytes # (A) 0.8 k/uL (0-1.0); Monocytes % (A) 8 %; Neutrophils # (A) 6.7 k/uL (1.3-7.7); Neutrophils % (A) 67 %; Platelet Count 321 k/uL (150-450); RBC 3.79 m/uL (4.30-5.90); RDW 13.8 % (11.5-15.5); WBC 10.1 k/uL (3.8-10.6)
[2019-05-28 01:59] LABS: INR 0.9 (<1.2); Partial Thromboplastin Time 23.4 sec (22.0-30.0); Prothrombin Time 10.2 sec (9.0-12.0)
[2019-05-28 02:04] LABS: Albumin 3.3 g/dL (3.5-5.0); Calcium 8.1 mg/dL (8.4-10.2); Potassium 3.1 mmol/L (3.5-5.1); Total Bilirubin 0.3 mg/dL (0.2-1.3); Total Protein 6.2 g/dL (6.3-8.2)
[2019-05-28] MEDS ORDERED: POTASSIUM CHLORIDE ER 20 MEQ TAB.ER PO STA (02:39)
[2019-05-28] MEDS ORDERED: SODIUM CHLORIDE 0.9% 1,000 ML IV ONE (03:07)
--- NOTE | 2019-05-28 03:09 | CT ---
EXAM: CT Head Without Intravenous Contrast CLINICAL HISTORY: ITS.REASON CT Reason: Neuro Deficits TECHNIQUE: Axial computed tomography images of the head/brain without intravenous contrast. CTDI is 49 mGy and DLP is 1193 mGy-cm. This CT exam was performed using one or more of the following dose reduction techniques: automated exposure control, adjustment of the mA and/or kV according to patient size, and/or use of iterative reconstruction technique. COMPARISON: No relevant prior studies available. FINDINGS: Brain: No hemorrhage, large hypodensity, or mass effect. Ventricles: No hydrocephalus. Moderate cerebral volume loss. Bones/joints: Unremarkable. Soft tissues: Unremarkable. Sinuses: Unremarkable. Mastoid air cells: Clear. IMPRESSION: No acute hemorrhage, hydrocephalus, or mass effect.
--- NOTE | 2019-05-28 03:11 | XR ---
EXAM: XR Chest, 2 Views CLINICAL HISTORY: ITS.REASON XR Reason: altered mental status TECHNIQUE: Frontal and lateral views of the chest. COMPARISON: 05/27/19 IMPRESSION: Cardiomegaly. Increased opacities in the bilateral lower lobes, possibly atelectasis versus aspiration.
[2019-05-28] MEDS ORDERED: NALOXONE 0.4 MG/ML 1 ML VIAL IV PRN (03:27)
[2019-05-28] MEDS ORDERED: ACETAMINOPHEN TAB 325 MG TAB PO PRN (03:27)
[2019-05-28] MEDS: SODIUM CHLORIDE 0.9% 1,000 ML IV SCH (06:30)
[2019-05-28 16:16] VITALS: BMI 45.9
--- NOTE | 2019-05-28 16:29 | P.HPIM ---
History of Present Illness 68-year-old male patient presents to the emergency department for evaluation after experiencing a fall. Patient is currently residing at [facility]. Recent states that he was scratching his back in bed when he rolled to far and focal out of bed onto the floor. Patient denies any injuries from this fall. Denies hitting his head or losing consciousness. States he is having some low back pain but this is usual for his chronic back pain pattern. Patient denies any radiating pain down the legs, loss of bowel or bladder control, saddle anesthesia, or lower extremity numbness or tingling. Denies any current headache, blurred vision, double vision, neck pain, nausea, or vomiting. Denies any numbness, tingling, or weakness. Patient was seen and evaluated here in the emergency department for similar complaint yesterday evening. Nursing staff in the emergency department state that patient's speech seems different than yesterday and he is more difficult to understand. Family member states that he has been experiencing more frequent falls lately and they are working on admitting him to a long-term care facility with more support. Patient denies any recent rash, fever, chills, shortness breath, chest pain, abdominal pain, nausea, vomiting, diarrhea, constipation, hematuria, dysuria, urinary urgency, urinary frequency, or any other complaints. Family is requesting the admission to Extended care facility because of which we'll get PT and OT evaluation. Patient is mostly wheelchair bound. Patient CAT scan of the head did not show any intracranial hematoma. Patient does have acute renal failure baseline creatinine 1 now around 1.5 patient is on diuretic therapy for facial edema which will be held and patient was given IV fluids BNP will be tested tomorrow Review of Systems REVIEW OF SYSTEMS: CONSTITUTIONAL: No fever, no malaise, no fatigue. HEENT: No recent visual problems or hearing problems. Denied any sore throat. CARDIOVASCULAR: No chest pain, orthopnea, PND, no palpitations, no syncope. PULMONARY: No shortness of breath, no cough, no hemoptysis. GASTROINTESTINAL: No diarrhea, no nausea, no vomiting, no abdominal pain. NEUROLOGICAL: No headaches, no weakness, no numbness. HEMATOLOGICAL: Denies any bleeding or petechiae. GENITOURINARY: Denies any burning micturition, frequency, or urgency. MUSCULOSKELETAL/RHEUMATOLOGICAL: Denies any joint pain, swelling, or any muscle pain. ENDOCRINE: Denies any polyuria or polydipsia. The rest of the 14-point review of systems is negative. Past Medical History Past Medical History: COPD, GERD/Reflux, Hypertension, Prostate Disorder History of Any Multi-Drug Resistant Organisms: None Reported Past Surgical History: Tonsillectomy Past Psychological History: Anxiety, Depression Smoking Status: Never smoker Past Alcohol Use History: Rare Past Drug Use History: None Reported - Past Family History Father Family Medical History: No Reported History Medications and Allergies Home Medications Medication Instructions Recorded Confirmed Type Aspirin EC [Ecotrin Low Dose] 81 mg PO DAILY 01/13/19 05/28/19 History Citalopram Hydrobromide [CeleXA] 40 mg PO DAILY 01/13/19 05/28/19 History Finasteride [Proscar] 5 mg PO DAILY 01/13/19 05/28/19 History Furosemide [Lasix] 40 mg PO BID 01/13/19 05/28/19 History Metoprolol Succinate (ER) [Toprol 25 mg PO DAILY 01/13/19 05/28/19 History XL] Omeprazole 40 mg PO DAILY 01/13/19 05/28/19 History Tamsulosin HCl [Flomax] 0.4 mg PO DAILY 01/13/19 05/28/19 History Cephalexin [Keflex] 500 mg PO Q6HR #40 cap 05/13/19 05/28/19 Rx diphenhydrAMINE [Benadryl] 50 mg PO QID PRN #20 capsule 05/22/19 05/28/19 Rx Allergies Allergy/AdvReac Type Severity Reaction Status Date / Time No Known Allergies Allergy Verified 05/28/19 07:28 Physical Exam Vitals: Vital Signs Temp Pulse Pulse Resp BP BP Pulse Ox 05/28/19 15:17 20 05/28/19 15:00 97.5 F L 76 20 127/65 96 05/28/19 08:00 20 05/28/19 05:54 97.7 F 82 20 130/72 95 05/28/19 05:19 76 20 110/76 95 05/28/19 03:25 97.9 F 74 19 106/71 95 05/28/19 01:49 80 20 113/86 95 05/27/19 23:59 97.7 F 80 20 111/69 94 L Intake and Output 05/28/19 05/28/19 05/28/19 06:59 14:59 22:59 Intake Total 240 Output Total 300 Balance -60 Intake: Oral 240 Output: Urine 300 Other: Voiding Method Urinal Urinal Urinal Diaper Diaper Diaper Incontinent Incontinent Incontinent # Voids 1 Weight 130.635 kg 141.067 kg 141.067 kg PHYSICAL EXAMINATION: GENERAL: The patient is alert and oriented x3, not in any acute distress. Well developed, well nourished. HEENT: Pupils are round and equally reacting to light. EOMI. No scleral icterus. No conjunctival pallor. Normocephalic, atraumatic. No pharyngeal erythema. No thyromegaly. CARDIOVASCULAR: S1 and S2 present. No murmurs, rubs, or gallops. PULMONARY: Chest is clear to auscultation, no wheezing or crackles. ABDOMEN: Soft, nontender, nondistended, normoactive bowel sounds. No palpable organomegaly. MUSCULOSKELETAL: No joint swelling or deformity. EXTREMITIES: No cyanosis, clubbing, does have pedal edema which is chronic nonpitting NEUROLOGICAL: Gross neurological examination did not reveal any focal deficits. As have chronic weakness of both legs in the there is some muscle atrophy SKIN: No rashes. Results CBC & Chem 7: 05/28/19 01:43 05/28/19 01:43 Labs: Abnormal Lab Results - Last 24 Hours (Table) 05/28/19 05/28/19 Range/Units 01:43 01:43 RBC 3.79 L (4.30-5.90) m/uL Hgb 11.4 L (13.0-17.5) gm/dL Hct 34.4 L (39.0-53.0) % Eosinophils # 0.9 H (0-0.7) k/uL Potassium 3.1 L (3.5-5.1) mmol/L BUN 33 H (9-20) mg/dL Creatinine 1.64 H (0.66-1.25) mg/dL Glucose 117 H (74-99) mg/dL Calcium 8.1 L (8.4-10.2) mg/dL Total Protein 6.2 L (6.3-8.2) g/dL Albumin 3.3 L (3.5-5.0) g/dL Thrombosis Risk Factor Assmnt - Choose All That Apply Any of the Below Risk Factors Present?: Yes Each Factor Represents 1 point: Obesity (BMI >25), Swollen legs (current) Other Risk Factors: Yes Each Risk Factor Represents 2 Points: Age 61-74 years Other congenital or acquired thrombophilia - If yes, enter type in comment: No Thrombosis Risk Factor Assessment Total Risk Factor Score: 4 Thrombosis Risk Factor Assessment Level: Moderate Risk Assessment and Plan Plan: Acute renal failure prerenal azotemia diuretic therapy will be held patient will be continued on IV fluids and the will recheck the basic metabolic profile tomorrow -Falls presently mechanical although patient has does have significant generalized weakness may benefit from extended care facility or a subacute rehabilitation will get PT and OT evaluation patient cannot care for himself many placed to went into long-term facility. Doesn't qualify for subacute rehabilitation. -Hypertension COPD without any acute exacerbation -Obesity with sleep apnea -Intertrigo for which we'll use nystatin powder -Benign prostatic hypertrophy continue tamsulosin -Depression continue Celexa -DVT prophylaxis with subcutaneous heparin
--- NOTE | 2019-05-28 20:44 | P.CNNES ---
History of Present Illness Consult date: 05/28/19 Reason for Consult: Speech disturbance Chief complaint: Speech disturbance History of Present Illness: REFERRING PHYSICIAN: Emilia Landers, [facility] HISTORY OF PRESENT ILLNESS: Thank you for allowing me to evaluate Mr. Fran Baker. Mr. Baker is a 68 year-old man with PMhx of COPD, GERD, hypertension, prostate disorder, anxiety, depression, who presented to [facility] after a fall, consulting Neurology for speech disturbance. Patient lives at an assited living facility. patient was scratching his back in bed, but he rolled too far and fell off his bed. Patient denies any loss of consciousness or hitting his head. Patient states that he was asked about his speech by some other providers at this facility, but to the patient, his speech sounds normal and at baseline. No change. Patient denies any headache, nausea, vomiting, dizziness, double/blurry vision, weakness, numbness or tingling. Per H&P, nursing staff in ED stated patient's speech appears different than when he had first visited the ED 2 days ago (he had come for similar episode). Family had also stated that patient was falling more frequently, and family has been trying to admit patient to a long- term care facility. PAST MEDICAL HISTORY: COPD, GERD, hypertension, prostate disorder, anxiety, depression PAST SURGICAL HISTORY: Tonsillectomy HOME MEDICATIONS: Lasix 40 mg twice a day, tamsulosin, metoprolol, Santos I, citalopram, aspirin, omeprazole, Benadryl ALLERGIES: No known ALLERGIES SOCIAL HISTORY: Never smoker. Social drinker. Denies alcohol/drug abuse history. REVIEW OF SYSTEMS: The 14 systems are reviewed and no additional points are identified compared to the review of systems documented history and physical PHYSICAL EXAMINATION: VITAL SIGNS: Temperature 97.7 pulse rate 82 respiratory 20 blood pressure 130/72 O2 saturation 95% on room air GEN.: Obese, NAD, pleasant and cooperative HEENT: NCAT, sclera without icterus NECK: Supple SKIN AND EXTREMITIES: bilateral lower extremities with significant cellulitis with some blister formation and scabbing NEURO: MENTAL STATUS: Patient alert and oriented to self, place, time. Able to name the current president. Speech fluent, able to name and repeat, following all commands readily. Very mild slurring of speech. No right and left disorientati on CRANIAL NERVES II THROUGH XII: II: L pupil disfigured. R pupil 2mm, mildly reactive to light. III, IV, : No ptosis. Extraocular movements full. No nystagmus. V: Facial sensation intact from V1-3. VII. No clear facial asymmetry. VIII: Hearing intact to finger rub bilaterally. IX, X: Symmetric palate elevation. XII: Shoulder shrug intact. XII: Tongue midline without fasciculation or atrophy. MOTOR: Normal bulk/tone. No pronator drift or tremor. Bilateral upper extremities 5/5 strength. Bilateral lower extremities limited due to weight and cellulitis but patient able to give at least 4-/5 effort in both legs. SENSORY: Intact to light touch in all 4 extremities. REFLEXES: 1+ throughout. Toes are mute. COORDINATION: Finger to nose intact. No dysmetria. GAIT: Deferred; pt would like to just stay in bed. DIAGNOSTIC TESTING: LABORATORY: WBC 10.1 hemoglobin 11.4 platelets 321 PT 10.2 INR 0.9 sodium 138 potassium 3.1 chloride 101 bicarb 27 BUN 33 creatinine 1.64 glucose 117 AST 38 ALT 25 alk phos 82 troponin <0.012 IMAGING: CT head without contrast 05/28/2019: No acute hemorrhage, hydrocephalus, or mass effect. Moderate cerebral volume loss. ASSESSMENT and RECOMMENDATIONS: Mr. Baker is a 68 year-old man with PMhx of COPD, GERD, hypertension, prostate disorder, anxiety, depression, who presented to [facility] after a fall, consulting Neurology for speech disturbance. On exam, patient with very mild dysarthria with no other focal neuro deficits. Patient also with significant cellullitis of bilateral lower extremities and creatinine 1.64. Primary team to manage cellulitis and renal failure. No further neurological work-up recommended at this time. Neurology will sign off. Please call with additional questions or concerns. Past Medical History Past Medical History: COPD, GERD/Reflux, Hypertension, Prostate Disorder History of Any Multi-Drug Resistant Organisms: None Reported Past Surgical History: Tonsillectomy Past Psychological History: Anxiety, Depression Smoking Status: Never smoker Past Alcohol Use History: Rare Past Drug Use History: None Reported - Past Family History Father Family Medical History: No Reported History Medications and Allergies Home Medications Medication Instructions Recorded Confirmed Type Aspirin EC [Ecotrin Low Dose] 81 mg PO DAILY 01/13/19 05/28/19 History Citalopram Hydrobromide [CeleXA] 40 mg PO DAILY 01/13/19 05/28/19 History Finasteride [Proscar] 5 mg PO DAILY 01/13/19 05/28/19 History Furosemide [Lasix] 40 mg PO BID 01/13/19 05/28/19 History Metoprolol Succinate (ER) [Toprol 25 mg PO DAILY 01/13/19 05/28/19 History XL] Omeprazole 40 mg PO DAILY 01/13/19 05/28/19 History Tamsulosin HCl [Flomax] 0.4 mg PO DAILY 01/13/19 05/28/19 History Cephalexin [Keflex] 500 mg PO Q6HR #40 cap 05/13/19 05/28/19 Rx diphenhydrAMINE [Benadryl] 50 mg PO QID PRN #20 capsule 05/22/19 05/28/19 Rx Allergies Allergy/AdvReac Type Severity Reaction Status Date / Time No Known Allergies Allergy Verified 05/28/19 07:28 Physical Examination - Vital Signs Vital Signs: Vital Signs Temp Pulse Pulse Resp BP BP Pulse Ox 05/28/19 05:54 97.7 F 82 20 130/72 95 05/28/19 05:19 76 20 110/76 95 05/28/19 03:25 97.9 F 74 19 106/71 95 05/28/19 01:49 80 20 113/86 95 05/27/19 23:59 97.7 F 80 20 111/69 94 L Intake and Output 05/27/19 05/28/19 05/28/19 22:59 06:59 14:59 Intake Total 240 Balance 240 Intake: Oral 240 Other: Voiding Method Urinal Diaper Incontinent # Voids 1 Weight 130.635 kg 141.067 kg Results - Laboratory Findings CBC and BMP: 05/28/19 01:43 05/28/19 01:43 Abnormal Lab Findings: Abnormal Labs 05/28/19 05/28/19 01:43 01:43 RBC 3.79 L Hgb 11.4 L Hct 34.4 L Eosinophils # 0.9 H Potassium 3.1 L BUN 33 H Creatinine 1.64 H Glucose 117 H Calcium 8.1 L Total Protein 6.2 L Albumin 3.3 L
[2019-05-28] MEDS: NYSTATIN 100,000 UNIT/GM POWD 15 GM TOPICAL SCH (20:45)
[2019-05-29] MEDS: SODIUM CHLORIDE 0.9% 1,000 ML IV SCH (00:33)
[2019-05-29] MEDS: METOPROLOL SUCCINATE (ER) 25 MG TAB.ER.24H PO SCH (08:34)
[2019-05-29] MEDS: TAMSULOSIN 0.4 MG CAP.ER.24H PO SCH (08:34)
[2019-05-29] MEDS: FINASTERIDE 5 MG TAB PO SCH (08:34)
[2019-05-29] MEDS: NYSTATIN 100,000 UNIT/GM POWD 15 GM TOPICAL SCH ×2 (08:34→21:19)
[2019-05-29] MEDS: PANTOPRAZOLE 40 MG TABLET PO SCH (08:34)
[2019-05-29] MEDS: ASPIRIN 81 MG PO SCH (08:34)
[2019-05-29] MEDS: CITALOPRAM HYDROBROMIDE 20 MG TAB PO SCH (08:34)
[2019-05-29 10:02] LABS: Albumin 2.9 g/dL (3.5-5.0); Calcium 8.1 mg/dL (8.4-10.2); Potassium 3.4 mmol/L (3.5-5.1); Total Bilirubin 0.7 mg/dL (0.2-1.3); Total Protein 5.6 g/dL (6.3-8.2)
[2019-05-29] MEDS ORDERED: Potassium Replacement Protocol 1 EACH MISC MISCELLANE PRN (10:16)
[2019-05-29] MEDS: POTASSIUM CHLORIDE ER 20 MEQ TAB.ER PO SCH (12:40)
--- NOTE | 2019-05-29 16:20 | P.PN ---
Subjective Patient was admitted for fall patient is being treated for acute renal failure patient has multiple bilateral lower limb ulcers may be cellulitis patient was started on ceftezole and. Patient will be discharged to subacute rehabilitation PT and OT evaluated the patient. Patient is also being treated for acute renal failure. His serum creatinine did improve IV fluids will be discussed uterine continue to hold off on Lasix Constitutional: Denied any fatigue denied any fever. Cardio vascular: denied any chest pain, palpitations Gastrointestinal denied any nausea vomiting Pulmonary: Denied any shortness of breath cough Neurologic denied any new focal deficits All inpatient medications were reviewed and appropriate changes in these medicat ions as dictated in the interval history and assessment and plan. Objective - Vital Signs Vital signs: Vital Signs Temp 97.8 F 05/29/19 13:50 Pulse 67 05/29/19 13:50 Resp 20 05/29/19 13:50 BP 111/64 05/29/19 13:50 Pulse Ox 95 05/29/19 13:50 Intake & Output 05/28/19 05/29/19 05/29/19 18:59 06:59 18:59 Intake Total 240 1700 700 Output Total 300 775 Balance -60 925 700 Weight 141.067 kg Intake: Oral 240 1700 700 Output: Urine 300 775 Other: Voiding Method Urinal Urinal Diaper Diaper Incontinent Incontinent # Voids 1 2 - Exam PHYSICAL EXAMINATION: GENERAL: The patient is alert and oriented x3, not in any acute distress. Well developed, well nourished. HEENT: Pupils are round and equally reacting to light. EOMI. No scleral icterus. No conjunctival pallor. Normocephalic, atraumatic. No pharyngeal erythema. No thyromegaly. CARDIOVASCULAR: S1 and S2 present. No murmurs, rubs, or gallops. PULMONARY: Chest is clear to auscultation, no wheezing or crackles. ABDOMEN: Soft, nontender, nondistended, normoactive bowel sounds. No palpable organomegaly. MUSCULOSKELETAL: No joint swelling or deformity. EXTREMITIES: No cyanosis, clubbing, does have pedal edema which is chronic nonpitting NEUROLOGICAL: Gross neurological examination did not reveal any focal deficits. As have chronic weakness of both legs in the there is some muscle atrophy SKIN: has bilateral lower leg edema chronic with multiple ulcers redness there may be cellulitis mostly in the left leg - Labs CBC & Chem 7: 05/28/19 01:43 05/29/19 08:53 Labs: Abnormal Lab Results - Last 24 Hours (Table) 05/29/19 Range/Units 08:53 Potassium 3.4 L (3.5-5.1) mmol/L Glucose 130 H (74-99) mg/dL Calcium 8.1 L (8.4-10.2) mg/dL Total Protein 5.6 L (6.3-8.2) g/dL Albumin 2.9 L (3.5-5.0) g/dL Assessment and Plan Plan: Acute renal failure prerenal azotemia diuretic therapy being held held her serum creatinine improved IV fluids will be discontinued -Falls presently mechanical although patient has does have significant generalized weakness may benefit from extended care facility or a subacute r ehabilitation will get PT and OT evaluation patient cannot care for himself many placed to went into long-term facility. Doesn't qualify for subacute rehabilitation. I from multiple ulcers in bilateral lower extremities most of them are stage II, with possible cell light is of bilateral lower extremities and patient was started on ceftezole local wound care and infectious disease was consulted -Hypertension COPD without any acute exacerbation -Obesity with sleep apnea -Intertrigo for which we'll use nystatin powder -Benign prostatic hypertrophy continue tamsulosin -Depression continue Celexa -DVT prophylaxis with subcutaneous heparin
--- NOTE | 2019-05-30 06:11 | CONS ---
CONSULTATION DATE OF SERVICE: 05/29/2019 REASON FOR CONSULTATION: Lower extremity wound and cellulitis. HISTORY OF PRESENT ILLNESS: The patient is a 68-year-old male presenting to the ER at [facility] on 05/27/2019 after the patient did have a fall. The patient who is residing at the [facility] said that when he was scratching his back in the bed and he rolled to far and got to the floor. The patient denies hitting his head or loss of any consciousness. The patient did have a chronic ulcer to his lower extremity mostly on the left leg which the patient had for a couple of weeks and it was not very clear what he is getting for treatment rowe. The patient subsequently has been evaluated in the ER and has been admitted to the hospital for possible syncope and management of his fall. I was asked to see the patient today for management of his lower extremity wound and possible cellulitis in this patient currently with no fever or any elevated white count. The patient was slightly dehydrated on presentation with overall improvement of his parameter as of today. Currently on cefazolin. REVIEW OF SYSTEMS: Positive points have been mentioned in HPI. Rest of systems are negative. PAST MEDICAL HISTORY: Significant for hypertension, gastroesophageal reflux disease, anxiety, depression, COPD, and prostate disorder. PAST SURGICAL HISTORY: Tonsillectomy. SOCIAL HISTORY: No history of smoking. He rarely drinks. No drug use. FAMILY HISTORY: No pertinent findings noticed. ALLERGIES: No known drug allergies. MEDICATIONS: Medications include the patient is currently on Tylenol, aspirin, cefazolin 2 grams q.8 hours. He is on Celexa, Proscar, Toprol XL, Narcan, Mycostatin powder, Protonix, and Flomax. PHYSICAL EXAMINATION: On examination, blood pressure is 111/64 with a pulse of 67, temperature is 97.8. He is 95% on room air. General description is an elderly male lying in bed in no distress. No tachypnea or accessory muscle of respiration use. HEENT EXAMINATION: Slight pallor. No scleral icterus. Oral mucous membrane is dry. No pharyngeal erythema or thrush. NECK: Trachea central. No thyromegaly. LUNGS: Unlabored breathing, clear to auscultation anteriorly. No wheeze or crackle. HEART: S1, S2. Regular rate and rhythm. ABDOMEN: Soft, no tenderness. No guarding or rigidity. Bilateral lower extremity did have some diffuse swelling, minimal redness with a wound on the bilateral legs, more extensive in the left leg with no significant slough tissue or any foul-smelling drainage. NEUROLOGICAL: The patient is awake, alert, oriented x3. Mood and affect normal. LABS: Hemoglobin 11.4, white count 10.1, BUN of 17, creatinine 1.07, potassium is 3.4. DIAGNOSTIC IMPRESSION AND PLAN: Patient with bilateral lower extremity venous stasis ulcers with secondary cellulitis, more marked on the left than on the right leg. Currently with no evidence of any abscess or any purulent drainage, likely from a gram-positive skin malika such as . PLAN: 1. Aquacel Silver dressing to bilateral leg wound followed by Jason wrap from just above the toe to below the knee. 2. Cefazolin 2 grams q.8 hours. 3. We will follow on clinical condition and culture to further adjust medication if needed. Thank you for this consultation. Will follow this patient along with you. MMODL / IJN: [id number] /
[2019-05-30] MEDS: CITALOPRAM HYDROBROMIDE 20 MG TAB PO SCH (08:46)
[2019-05-30] MEDS: METOPROLOL SUCCINATE (ER) 25 MG TAB.ER.24H PO SCH (08:46)
[2019-05-30] MEDS: NYSTATIN 100,000 UNIT/GM POWD 15 GM TOPICAL SCH (08:46)
[2019-05-30] MEDS: PANTOPRAZOLE 40 MG TABLET PO SCH (08:46)
[2019-05-30] MEDS: ASPIRIN 81 MG PO SCH (08:46)
[2019-05-30] MEDS: TAMSULOSIN 0.4 MG CAP.ER.24H PO SCH (08:46)
[2019-05-30] MEDS: FINASTERIDE 5 MG TAB PO SCH (08:46)
[2019-05-30 10:06] LABS: Calcium 8.3 mg/dL (8.4-10.2); Potassium 4.5 mmol/L (3.5-5.1)
--- NOTE | 2019-05-30 13:18 | P.DS ---
Providers Date of admission: 05/30/19 06:47 Expected date of discharge: 05/30/19 Attending physician: Rakesh Malave Consults: 05/28/19 03:27 Consult Physician Routine Consulting Provider: Swapna Ochoa Consult Reason/Comments: Speech disturbance; frequent falls Do you want consulting provider notified?: Yes 05/29/19 15:24 Consult Physician Routine Consulting Provider: Kranthi Conner Consult Reason/Comments: wounds on legs Do you want consulting provider notified?: Yes Primary care physician: [facility] Hospital Course: Final diagnosis Acute renal failure prerenal azotemia Falls presently mechanical Generalized weakness Multiple ulcers to bilateral lower extremities with possible cellulitis of bilateral lower extremities Hypertension COPD without any acute exacerbation Obesity with sleep apnea Intertrigo Benign prostatic hypertrophy Depression DVT prophylaxis Discharge disposition This patient is being discharged in a stable condition with guarded prognosis to ECF for continued PT/OT therapy as well as wound care per infectious disease recommendations. Patient will be discharged on oral antibiotics to complete the course of therapy. History of present illness This is a 68-year-old male who was admitted for falls, generalized weakness, acute renal failure. Patient's serum creatinine has improved during hospitalization. Patient will be resumed on oral Lasix 40 mg daily. Would recommend repeat BMP in 2-3 days. Patient denies any chest pain, shortness of breath, or palpitations at this time. Patient is been tolerating diet with no nausea or vomiting. Per infectious disease recommendations patient is to have Aquacel silver applied daily to bilateral lower extremities along with Jason wrapping for wound care. Patient has been afebrile. Patient is currently stable with much improvement and will be discharged to the ECF with guarded prognosis. Sister is aware of the treatment plan and agrees with the plan. On exam vital signs are stable. Blood pressure is 123/69, respirations are 20, pulse is 79, temp is 98F, oxygen saturation is 94% on room air. Cardio S1 and S2 are normal. Respiratory system is clear to auscultation with no wheezing noted. Abdomen is soft and non-tender. Nervous system shows no focal deficits with mild diffuse weakness. Patient does have bilateral lower leg edema that is chronic with some redness noted on exam. Aquacel and Jason wraps have been applied. Please refer to medication reconciliation sheet for a list of medications. Patient Condition at Discharge: Serious Plan - Discharge Summary Discharge Rx Participant: Yes New Discharge Prescriptions: New Nystatin 100,000 Unit/gm Powd [Mycostatin Powder] 1 applic TOPICAL BID applic Acetaminophen Tab [Tylenol] 650 mg PO Q6HR PRN tab PRN Reason: Mild Pain Or Fever > 100.5 Continue Furosemide [Lasix] 40 mg PO BID Tamsulosin HCl [Flomax] 0.4 mg PO DAILY Metoprolol Succinate (ER) [Toprol XL] 25 mg PO DAILY Finasteride [Proscar] 5 mg PO DAILY Citalopram Hydrobromide [CeleXA] 40 mg PO DAILY Aspirin EC [Ecotrin Low Dose] 81 mg PO DAILY Omeprazole 40 mg PO DAILY Cephalexin [Keflex] 500 mg PO Q6HR #40 cap diphenhydrAMINE [Benadryl] 50 mg PO QID PRN #20 capsule PRN Reason: Rash Discharge Medication List Aspirin EC [Ecotrin Low Dose] 81 mg PO DAILY 01/13/19 [History] Citalopram Hydrobromide [CeleXA] 40 mg PO DAILY 01/13/19 [History] Finasteride [Proscar] 5 mg PO DAILY 01/13/19 [History] Furosemide [Lasix] 40 mg PO BID 01/13/19 [History] Metoprolol Succinate (ER) [Toprol XL] 25 mg PO DAILY 01/13/19 [History] Omeprazole 40 mg PO DAILY 01/13/19 [History] Tamsulosin HCl [Flomax] 0.4 mg PO DAILY 01/13/19 [History] Cephalexin [Keflex] 500 mg PO Q6HR #40 cap 05/13/19 [Rx] diphenhydrAMINE [Benadryl] 50 mg PO QID PRN #20 capsule 05/22/19 [Rx] Acetaminophen Tab [Tylenol] 650 mg PO Q6HR PRN tab 05/30/19 [Rx] Nystatin 100,000 Unit/gm Powd [Mycostatin Powder] 1 applic TOPICAL BID applic 05/30/19 [Rx] Follow up Appointment(s)/Referral(s): [facility],Clinic [Primary Care Provider] - 1-2 days Ambulatory/Diagnostic Orders: Basic Metabolic Panel [LAB.AMB] Time Frame: 3 Days, Location: None Selected Activity/Diet/Wound Care/Special Instructions: Activity as tolerated continue current diet continue with wound care Aquacel silver dressing to bilateral leg wounds followed by an Jason wrap from just above the toe to below the knee Continue current antibiotics of Keflex 500 mg 4 times daily 10 days Follow-up with the wound care clinic upon discharge from the rehab facility. Discharge Disposition: TRANSFER TO SNF/ECF
[2019-05-30 13:26] VITALS: BP 121/59; PULSE 68; RESP 16; TEMP 97.3
--- NOTE | 2019-05-30 15:20 | PN ---
PROGRESS NOTE DATE OF SERVICE: 05/30/2019 REASON FOR FOLLOWUP: Bilateral lower extremity venostasis ulcers and cellulitis. INTERVAL HISTORY: The patient is currently afebrile. Patient is breathing comfortably. The patient denies having any chest pain or shortness of breath or cough. No nausea. No vomiting. No abdominal pain and no pain in the lower extremities. PHYSICAL EXAMINATION: Blood pressure 121/59 with a pulse of 68, temperature 97.3. He is 96% on room air. General description is an elderly male lying in bed in no distress. RESPIRATORY SYSTEM: Unlabored breathing. Clear to auscultation anteriorly. HEART: S1, S2. Regular rate and rhythm. ABDOMEN: Soft. No tenderness. Bilateral legs are currently wrapped up. No obvious drainage on the dressing. LABS: BUN of 15, creatinine 0.99. DIAGNOSTIC IMPRESSION AND PLAN: Patient with bilateral lower extremity venostasis ulcers with secondary cellulitis. The patient is clinically responding to cefazolin. Plan to finish therapy with oral Keflex 500 mg t.i.d. for another 7 to 10 days. Local wound care with Aquacel Silver dressing and Jason wraps to keep the swelling down. Continue with supportive care. MMODL / IJN: [id number] /
== END 2019-05-30 19:26 | DRG 683 ==
LOC: EC 23:55 → 4MS4W 05-28 04:42 → OBSVTOIN 05-30 06:47
PROVIDERS: ADMIT Hospitalist; ATTEND Hospitalist
DX: N17.9 Acute kidney failure, unspecified (principal); L03.116 Cellulitis of left lower limb; L03.115 Cellulitis of right lower limb; Z68.42 Body mass index [BMI] 45.0-49.9, adult; E66.9 Obesity, unspecified; R29.6 Repeated falls; E86.0 Dehydration; M54.5 Low back pain; G89.29 Other chronic pain; J44.9 Chronic obstructive pulmonary disease, unspecified; K21.9 Gastro-esophageal reflux disease without esophagitis; I10 Essential (primary) hypertension; F41.9 Anxiety disorder, unspecified; F32.9 Major depressive disorder, single episode, unspecified; G47.30 Sleep apnea, unspecified; L30.4 Erythema intertrigo; N40.0 Benign prostatic hyperplasia without lower urinary tract symptoms; R47.1 Dysarthria and anarthria; I83.019 Varicose veins of right lower extremity with ulcer of unspecified site; I83.029 Varicose veins of left lower extremity with ulcer of unspecified site; W06.XXXA Fall from bed, initial encounter; Z98.890 Other specified postprocedural states; Z99.3 Dependence on wheelchair; Z79.82 Long term (current) use of aspirin; Z79.899 Other long term (current) drug therapy; Y92.003 Bedroom of unspecified non-institutional (private) residence as the place of occurrence of the external cause
CPT/HCPCS: 36415; 70450; 71046; 80048; 80053; 84484; 85025; 85610; 85730; 93005; 96360; 96361; 99285